=== PATIENT | female | born 1990 | race Caucasian/White ===

== ENCOUNTER 2017-09-17 00:47 | Day surgery (SDC) | payer MEDICARE, OTHER ==
[~2017-09-17 00:47] MED LIST: ACET650SUP PR; ALPR.5 PO; ALUM320SU PO; AMIT10 PO; AMIT25 PO; AMLO5; AMLO5 PO; ASCO500 PO; ASPI325 PO; ATOR10; ATOR10 PO; ATOR20 PO; Ambien10 MG; BACTRIM; BCP'S; CALACE667G PO; CALC ACETATE; CALC ACETATE PO; CALC.25 PO; CALCA500CH PO; CHOL10002; CLON.1 PO; CLON.2; CLON.2 PO; CLOP75 PO; CYCL10 PO; Calcitriol0.5 MCG PO; Calcium Acetat667 MG PO; DAPTOMYCIN; DIPATR PO; DOCU100 PO; DOXE0.5 PO; DOXY100 PO; Dialyvite 5000 T5 MG; Doxycycline Mo100 M1 PO; EPOE20I IV; EPOE20I SQ; EPOE4000I SQ; FAMO20 PO; FERR160 PO; FERR325 PO; FERSU250ER PO; FURO40 PO; GABA100 PO; GABA300 PO; HYDACE5 PO; HYDMOR4 PO; IBUP800 PO; INS70/30PN SC; INSUASPI SC; INSULANI SC; LABE100; LABE100 PO; LEVFLO500 PO; LIDO5TP TOP; LIPITOR; LORA1 PO; LOSA25 PO; Lopressor PO; MAGOXI400 PO; MAXALT-MLT; MEDR150I IM; METO25 PO; METO25ER PO; METO5A PO; MIDO2.5 PO; MIDO5 PO; MULVITB PO; MYCO250; MYCO250 PO; MYCOPHENOLATE; Meribin5 MG; NECON; NEPHROCAP PO; NORTHERA100 MG PO; OMEP10ER PO; OMEP20ER; OMEP20ER PO; OMEPRAZOLE MAGN20 MG PO; OXYACE5T PO; OXYC5 PO; PARI1 PO; PENVK500 PO; POLY17UD PO; PRED; PRED1 PO; PRED20 PO; PRED5; PRED5 PO; PROACE100 PO; PROC10 PO; PROM25; PROM25 PO; RANI150; RENVELA PO; RXHYDMOR2 PO; RXOXYACE PO; RXPROACE PO; RXPROM25 PO; Restoril15 MG PO; SENN187 PO; SENSIPAR PO; SEPTRA; SEVE800 PO; SEVEC800 PO; SIROLIMUS; SODBIC650 PO; SUCR1 PO; SULTRIDS PO; Sensipar PO; TACR1; TACR1 PO; TOPI25; TRAM50 PO; VALGANCICLOVIR; VALGANCICLOVIR PO; VENOFER; Vitamin C100 M1 PO; WARF10 PO; WARF5 PO; WARF7.5 PO; ZOLP10 PO; ZOLP5 PO; Zofran Odt4 MG SL; [UNRECOGNIZED DRUG - CODE] SQ; [UNRECOGNIZED DRUG - OTHER]; [UNRECOGNIZED DRUG - OTHER]; [UNRECOGNIZED DRUG - OTHER]
[2018-04-12] MEDS ORDERED: NATPARA SC (00:12)
[2018-08-30] MEDS ORDERED: TOPI100 PO (12:22)
[2018-09-04] MEDS ORDERED: CUBICIN500 MG IV (11:37)
== END 2017-09-17 16:07 | disposition home or self-care (01) ==
LOC: ATC 00:47 → EDSTATUS 13:30 → ATC 16:07 → LAB FUT 09-13 09:25
DX: D64.9 Anemia, unspecified (principal); N18.6 End stage renal disease; D63.1 Anemia in chronic kidney disease
CPT/HCPCS: 36415; 36430; 86850; 86900; 86901; 86923; J7050; P9016

== ENCOUNTER 2017-09-22 20:04 | Emergency (ER) | payer MEDICARE, OTHER ==
[~2017-09-22] VITALS: Ht 147.3 cm; Wt 60.5 kg
[2017-09-22 21:25] LABS: Calcium, Ionized (POC) 0.86 mmol/L (1.10-1.46); Chloride (POC) 94 mmol/L (98-108); Creatinine (POC) 9.3 mg/dL (0.6-1.0); Glucose (ISTAT POC) 188 mg/dL (70-99); Hemoglobin (POC) 13.6 g/dL (12.0-16.0); Potassium (POC) 3.7 mmol/L (3.5-5.5); Sodium (POC) 129 mmol/L (135-148); Total CO2 (POC) 23 mmol/L (21-32)
[2017-09-22 21:30] LABS: BASOPHILS ABSOLUTE AUTO 0.02 K/mm3 (0.00-0.23); BASOPHILS PERCENT AUTO 0 % (0-2); EOSINOPHILS ABSOLUTE AUTO 0.12 K/mm3 (0.00-0.68); EOSINOPHILS PERCENT AUTO 1 % (0-6); Hemoglobin 11.8 g/dL (11.5-16.0); IMMATURE GRAN ABSOLUTE AUTO 0.05 K/mm3 (0.00-0.10); IMMATURE GRAN PERCENT AUTO 0 % (0-1); LYMPHOCYTES ABSOLUTE AUTO 0.66 K/mm3 (0.84-5.20); LYMPHOCYTES PERCENT AUTO 3 % (21-46); MONOCYTES ABSOLUTE AUTO 0.28 K/mm3 (0.16-1.47); MONOCYTES PERCENT AUTO 1 % (4-13); Mean Corpuscular HGB 31.7 pg (26.0-34.0); Mean Corpuscular HGB Conc 31.9 g/dL (31.5-36.5); Mean Corpuscular Volume 100 fL (80-100); Mean Platelet Volume 10.9 fL (9.1-12.4); NEUTROPHILS ABSOLUTE AUTO 18.51 K/mm3 (1.96-9.15); NEUTROPHILS PERCENT AUTO 94 % (41-73); NRBC ABSOLUTE 0.05 K/mm3 (0.00-0.02); NRBC Auto 0.2 /100 WBC (0.0-0.2); Platelet Count 387 K/mm3 (150-400); RDW Coefficient Variation 18.8 % (11.7-14.2); RDW Standard Deviation 64.3 fL (35.1-46.3); Red Blood Cell Count 3.72 M/mm3 (3.80-5.20); White Blood Cell Count 19.64 K/mm3 (4.00-11.30)
[2017-09-22] MEDS ORDERED: WARF2 PO (21:52)
[2017-09-22 21:54] LABS: Troponin I <0.015 ng/mL (0.000-0.040)
[2017-09-22 22:00] LABS: Alanine Aminotransfer (ALT/SGP 17 U/L (12-78); Albumin, Blood 4.1 g/dL (3.4-5.0); Albumin/Globulin Ratio 0.8 (0.8-1.8); Alk Phos 140 U/L (50-136); Anion Gap 16 mmol/L (6-16); Aspartate Aminotrans (AST/SGOT 14 U/L (12-37); Bilirubin, Total 0.6 mg/dL (0.1-1.0); Blood Urea Nitrogen 62 mg/dL (8-24); Bun/Creatinine Ratio 6.9 (12.0-20.0); CO2, Blood 26 mmol/L (21-32); Calcium, Blood 9.2 mg/dL (8.5-10.1); Chloride, Blood 86 mmol/L (98-108); Creatinine, Blood 8.93 mg/dL (0.40-1.00); Globulin, Blood 4.9 g/dL (2.2-4.0); Glomerular Filtration Rate 6 (60-); Glucose, Blood 188 mg/dL (70-99); Potassium, Blood 3.6 mmol/L (3.5-5.5); Sodium, Blood 128 mmol/L (136-145)
[2017-09-22 22:44] LABS: Base Excess Venous -0.5 mmol/L; Bicarbonate Venous 24.9 mmol/L (24.0-30.0); PCO2 Venous 26.2 mmHg (38-42); PO2 Venous 180 mmHg (38-42)
[2017-09-22 22:45] LABS: pH Blood Venous 7.53 (7.34-7.37)
[2017-09-22 22:55] LABS: International Normalized Ratio 1.09; Prothrombin Time Results 11.4 Sec (9.7-11.5)
[2018-04-12] MEDS ORDERED: NATPARA SC (00:12)
[2018-08-30] MEDS ORDERED: TOPI100 PO (12:22)
[2018-09-04] MEDS ORDERED: CUBICIN500 MG IV (11:37)
== END 2017-09-23 01:05 | disposition home or self-care (01) ==
LOC: ER 20:04
PROVIDERS: Physician Assistant
DX: R07.9 Chest pain, unspecified (principal); Z88.8 Allergy status to other drugs, medicaments and biological substances; Z88.1 Allergy status to other antibiotic agents; Z79.899 Other long term (current) drug therapy; Z79.01 Long term (current) use of anticoagulants; E11.9 Type 2 diabetes mellitus without complications; I10 Essential (primary) hypertension
CPT/HCPCS: 36415; 71045; 80047; 80053; 82803; 83605; 84484; 85014; 85025; 85610; 87040; 93005; 93010; 96365; 96367; 96368; 96375; 99285; J1580; J1885; J2185; J2405

== ENCOUNTER → 2017-09-29 | Outpatient (CLI) | payer MEDICARE, OTHER ==
[~2017-09-29] MED LIST changes: +ACET325 PO; +Acidophilus La100 GM PO; +CUBICIN RF500 MG IV; +CUBICIN500 MG IV; +DIPHEDRYL25 M1 IV; +FENT50TP IV; +NATPARA SC; +ONDA4ODT IV; +TOPI100 PO; +WARF2 PO
[2017-09-29 14:53] LABS: Albumin, Blood 3.6 g/dL (3.4-5.0); Calcium, Blood 8.7 mg/dL (8.5-10.1); Phosphorus, Blood 8.8 mg/dL (2.5-4.9)
== END ==
LOC: LAB DAV 13:45
PROVIDERS: Internal Medicine Nephrology
DX: E83.51 Hypocalcemia (principal)
CPT/HCPCS: 82040; 82310; 84100

== ENCOUNTER 2017-10-26 19:07 | Emergency (ER) | payer MEDICARE, OTHER ==
[~2017-10-26] VITALS: Ht 147.3 cm; Wt 63.5 kg
[~2017-10-26 19:07] MED LIST changes: -ACET325 PO; -Acidophilus La100 GM PO; -CUBICIN RF500 MG IV; -CUBICIN500 MG IV; -DIPHEDRYL25 M1 IV; -FENT50TP IV; -NATPARA SC; -ONDA4ODT IV; -TOPI100 PO
[2017-10-26 20:40] LABS: Calcium, Ionized (POC) 1.02 mmol/L (1.10-1.46); Chloride (POC) 106 mmol/L (98-108); Glucose (ISTAT POC) 86 mg/dL (70-99); Hemoglobin (POC) 11.2 g/dL (12.0-16.0); Potassium (POC) 3.7 mmol/L (3.5-5.5); Sodium (POC) 138 mmol/L (135-148); Total CO2 (POC) 19 mmol/L (21-32)
[2017-10-26 20:43] LABS: BASOPHILS ABSOLUTE AUTO 0.04 K/mm3 (0.00-0.23); BASOPHILS PERCENT AUTO 1 % (0-2); EOSINOPHILS ABSOLUTE AUTO 0.81 K/mm3 (0.00-0.68); EOSINOPHILS PERCENT AUTO 10 % (0-6); Hemoglobin 10.7 g/dL (11.5-16.0); IMMATURE GRAN ABSOLUTE AUTO 0.04 K/mm3 (0.00-0.10); IMMATURE GRAN PERCENT AUTO 1 % (0-1); LYMPHOCYTES ABSOLUTE AUTO 1.63 K/mm3 (0.84-5.20); LYMPHOCYTES PERCENT AUTO 20 % (21-46); MONOCYTES ABSOLUTE AUTO 0.48 K/mm3 (0.16-1.47); MONOCYTES PERCENT AUTO 6 % (4-13); Mean Corpuscular HGB 32.5 pg (26.0-34.0); Mean Corpuscular HGB Conc 30.6 g/dL (31.5-36.5); Mean Corpuscular Volume 106 fL (80-100); Mean Platelet Volume 11.2 fL (9.1-12.4); NEUTROPHILS ABSOLUTE AUTO 5.05 K/mm3 (1.96-9.15); NEUTROPHILS PERCENT AUTO 63 % (41-73); Platelet Count 197 K/mm3 (150-400); RDW Coefficient Variation 18.5 % (11.7-14.2); RDW Standard Deviation 71.7 fL (35.1-46.3); Red Blood Cell Count 3.29 M/mm3 (3.80-5.20); White Blood Cell Count 8.05 K/mm3 (4.00-11.30)
[2017-10-26 21:01] LABS: Troponin I <0.015 ng/mL (0.000-0.040)
[2017-10-26 21:09] LABS: CPK Creatine Kinase 46 U/L (26-193); Creatine Kinase MB 0.5 ng/mL (0.0-3.6); Creatine Kinase MB Index 1.1 (0.0-4.0)
[2017-10-26 21:12] LABS: Alanine Aminotransfer (ALT/SGP 74 U/L (12-78); Albumin, Blood 3.1 g/dL (3.4-5.0); Albumin/Globulin Ratio 0.9 (0.8-1.8); Alk Phos 150 U/L (50-136); Anion Gap 19 mmol/L (6-16); Aspartate Aminotrans (AST/SGOT 39 U/L (12-37); Bilirubin, Total 0.4 mg/dL (0.1-1.0); Blood Urea Nitrogen 111 mg/dL (8-24); Bun/Creatinine Ratio 9.5 (12.0-20.0); CO2, Blood 17 mmol/L (21-32); Chloride, Blood 103 mmol/L (98-108); Globulin, Blood 3.6 g/dL (2.2-4.0); Glomerular Filtration Rate 4 (60-); Glucose, Blood 99 mg/dL (70-99); Potassium, Blood 3.7 mmol/L (3.5-5.5); Sodium, Blood 139 mmol/L (136-145); Total Protein, Blood 6.7 g/dL (6.4-8.2)
[2017-10-26 22:50] LABS: International Normalized Ratio 0.97; Prothrombin Time Results 10.1 Sec (9.7-11.5)
[2018-04-12] MEDS ORDERED: NATPARA SC (00:12)
[2018-08-30] MEDS ORDERED: TOPI100 PO (12:22)
[2018-09-04] MEDS ORDERED: CUBICIN500 MG IV (11:37)
== END 2017-10-27 00:18 | disposition home or self-care (01) ==
LOC: ER 19:07
PROVIDERS: Emergency Medicine
DX: R07.9 Chest pain, unspecified (principal); Z88.8 Allergy status to other drugs, medicaments and biological substances; Z88.1 Allergy status to other antibiotic agents; Z79.899 Other long term (current) drug therapy; Z79.01 Long term (current) use of anticoagulants
CPT/HCPCS: 36415; 71046; 80047; 80053; 82550; 82553; 84484; 85014; 85025; 85610; 93005; 93010; 96374; 99284; J1885

== ENCOUNTER 2018-05-08 22:24 | Inpatient (IN) | payer MEDICARE, OTHER ==
[~2018-05-08] VITALS: Ht 147.3 cm; Wt 64.6 kg
[~2018-05-08 22:24] MED LIST changes: +NATPARA SC
[2018-05-08 23:53] LABS: Hematocrit 27.1 % (33.0-51.0); Hemoglobin 8.8 g/dL (11.5-16.0); Mean Corpuscular HGB 32.5 pg (26.0-34.0); Mean Corpuscular HGB Conc 32.5 g/dL (31.5-36.5); Mean Corpuscular Volume 100 fL (80-100); Mean Platelet Volume 12.1 fL (9.1-12.4); Platelet Count 142 K/mm3 (150-400); RDW Coefficient Variation 17.2 % (11.7-14.2); RDW Standard Deviation 61.9 fL (35.1-46.3); Red Blood Cell Count 2.71 M/mm3 (3.80-5.20); White Blood Cell Count 5.43 K/mm3 (4.00-11.30)
[2018-05-09 00:11] LABS: BAND PERCENT MAN 18 % (0-8); BASOPHILS PERCENT MAN 0 % (0-2); EOSINOPHILS ABSOLUTE MAN 0.05 K/mm3 (0.00-0.68); EOSINOPHILS PERCENT MAN 1 % (0-6); LYMPHOCYTES ABSOLUTE MAN 0.16 K/mm3 (0.84-5.20); LYMPHOCYTES PERCENT MAN 3 % (21-46); MONOCYTES ABSOLUTE MAN 0.05 K/mm3 (0.16-1.47); MONOCYTES PERCENT MAN 1 % (4-13); MYELOCYTE ABSOLUTE MAN 0.05 K/mm3 (0.00-0.00); MYELOCYTE PERCENT MAN 1 % (0-0); SEG NEUTROPHILS PERCENT MAN 76 % (41-73); TOTAL CELLS COUNTED 100
[2018-05-09 00:20] LABS: Albumin, Blood 3.6 g/dL (3.4-5.0); Albumin/Globulin Ratio 0.8 (0.8-1.8); Bilirubin, Total 0.8 mg/dL (0.1-1.0); Bun/Creatinine Ratio 4.8 (12.0-20.0); Calcium, Blood 6.3 mg/dL (8.5-10.1); Creatinine, Blood 9.97 mg/dL (0.40-1.00); Globulin, Blood 4.3 g/dL (2.2-4.0); Potassium, Blood 4.4 mmol/L (3.5-5.5); Total Protein, Blood 7.9 g/dL (6.4-8.2)
[2018-05-09 05:25] LABS: BASOPHILS ABSOLUTE AUTO 0.02 K/mm3 (0.00-0.23); BASOPHILS PERCENT AUTO 0 % (0-2); EOSINOPHILS ABSOLUTE AUTO 0.01 K/mm3 (0.00-0.68); EOSINOPHILS PERCENT AUTO 0 % (0-6); Hematocrit 23.8 % (33.0-51.0); Hemoglobin 7.6 g/dL (11.5-16.0); IMMATURE GRAN ABSOLUTE AUTO 0.02 K/mm3 (0.00-0.10); IMMATURE GRAN PERCENT AUTO 0 % (0-1); LYMPHOCYTES ABSOLUTE AUTO 0.64 K/mm3 (0.84-5.20); LYMPHOCYTES PERCENT AUTO 10 % (21-46); MONOCYTES ABSOLUTE AUTO 0.33 K/mm3 (0.16-1.47); MONOCYTES PERCENT AUTO 5 % (4-13); Mean Corpuscular HGB 32.8 pg (26.0-34.0); Mean Corpuscular HGB Conc 31.9 g/dL (31.5-36.5); Mean Platelet Volume 11.7 fL (9.1-12.4); NEUTROPHILS ABSOLUTE AUTO 5.47 K/mm3 (1.96-9.15); NEUTROPHILS PERCENT AUTO 84 % (41-73); Platelet Count 143 K/mm3 (150-400); RDW Coefficient Variation 17.5 % (11.7-14.2); RDW Standard Deviation 65.5 fL (35.1-46.3); Red Blood Cell Count 2.32 M/mm3 (3.80-5.20); White Blood Cell Count 6.49 K/mm3 (4.00-11.30)
[2018-05-09 05:26] LABS: Mean Corpuscular Volume 103 fL (80-100)
[2018-05-09 05:38] LABS: International Normalized Ratio 1.1; Prothrombin Time Results 11.3 Sec (9.7-11.5)
[2018-05-09 05:49] LABS: Magnesium, Blood 2.1 mg/dL (1.6-2.4); Phosphorus, Blood 4.1 mg/dL (2.5-4.9)
[2018-05-09 05:52] LABS: Potassium, Blood 4.1 mmol/L (3.5-5.5)
[2018-05-09 06:07] LABS: Bun/Creatinine Ratio 4.6 (12.0-20.0); Calcium, Blood 5.7 mg/dL (8.5-10.1); Creatinine, Blood 10.3 mg/dL (0.40-1.00)
[2018-05-09 12:52] LABS: Gentamicin, Random 2.5 ug/Ml
[2018-05-09 15:56] LABS: Gentamicin, Peak 10.9 ug/mL (4.0-8.0)
[2018-05-10 03:56] LABS: BASOPHILS ABSOLUTE AUTO 0.03 K/mm3 (0.00-0.23); BASOPHILS PERCENT AUTO 0 % (0-2); EOSINOPHILS PERCENT AUTO 0 % (0-6); Hematocrit 30.3 % (33.0-51.0); Hemoglobin 9.6 g/dL (11.5-16.0); IMMATURE GRAN ABSOLUTE AUTO 0.03 K/mm3 (0.00-0.10); IMMATURE GRAN PERCENT AUTO 0 % (0-1); LYMPHOCYTES ABSOLUTE AUTO 0.73 K/mm3 (0.84-5.20); LYMPHOCYTES PERCENT AUTO 9 % (21-46); MONOCYTES ABSOLUTE AUTO 0.53 K/mm3 (0.16-1.47); MONOCYTES PERCENT AUTO 6 % (4-13); Mean Corpuscular HGB 30.6 pg (26.0-34.0); Mean Corpuscular HGB Conc 31.7 g/dL (31.5-36.5); Mean Platelet Volume 11.9 fL (9.1-12.4); NEUTROPHILS ABSOLUTE AUTO 7.05 K/mm3 (1.96-9.15); NEUTROPHILS PERCENT AUTO 84 % (41-73); Platelet Count 161 K/mm3 (150-400); RDW Coefficient Variation 19.5 % (11.7-14.2); RDW Standard Deviation 67.8 fL (35.1-46.3); Red Blood Cell Count 3.14 M/mm3 (3.80-5.20); White Blood Cell Count 8.37 K/mm3 (4.00-11.30)
[2018-05-10 04:03] LABS: Mean Corpuscular Volume 97 fL (80-100)
[2018-05-10 04:06] LABS: International Normalized Ratio 1.18
[2018-05-10 04:13] LABS: Albumin, Blood 2.8 g/dL (3.4-5.0); Anion Gap 9 mmol/L (6-16); Blood Urea Nitrogen 35 mg/dL (8-24); Bun/Creatinine Ratio 4.7 (12.0-20.0); CO2, Blood 26 mmol/L (21-32); Calcium, Blood 6.7 mg/dL (8.5-10.1); Chloride, Blood 101 mmol/L (98-108); Creatinine, Blood 7.43 mg/dL (0.40-1.00); Glomerular Filtration Rate 7 (60-); Glucose, Blood 141 mg/dL (70-99); Magnesium, Blood 1.9 mg/dL (1.6-2.4); Phosphorus, Blood 3.7 mg/dL (2.5-4.9); Potassium, Blood 4.3 mmol/L (3.5-5.5); Sodium, Blood 136 mmol/L (136-145)
[2018-05-10 12:24] LABS: Gentamicin, Random 2.1 ug/Ml
[2018-05-11 04:21] LABS: Hematocrit 33.9 % (33.0-51.0); Hemoglobin 10.8 g/dL (11.5-16.0)
[2018-05-11 04:33] LABS: International Normalized Ratio 1.24; Prothrombin Time Results 12.6 Sec (9.7-11.5)
[2018-05-11 04:38] LABS: Albumin, Blood 2.9 g/dL (3.4-5.0); Anion Gap 10 mmol/L (6-16); Blood Urea Nitrogen 32 mg/dL (8-24); Bun/Creatinine Ratio 4.6 (12.0-20.0); CO2, Blood 31 mmol/L (21-32); Calcium, Blood 6.9 mg/dL (8.5-10.1); Chloride, Blood 96 mmol/L (98-108); Creatinine, Blood 6.95 mg/dL (0.40-1.00); Glomerular Filtration Rate 8 (60-); Glucose, Blood 99 mg/dL (70-99); Magnesium, Blood 2.3 mg/dL (1.6-2.4); Phosphorus, Blood 4.6 mg/dL (2.5-4.9); Potassium, Blood 3.9 mmol/L (3.5-5.5); Sodium, Blood 137 mmol/L (136-145)
[2018-05-12 05:14] LABS: Hemoglobin 10.6 g/dL (11.5-16.0)
[2018-05-12 05:23] LABS: International Normalized Ratio 1.3; Prothrombin Time Results 13.2 Sec (9.7-11.5)
[2018-05-12 05:40] LABS: Albumin, Blood 2.8 g/dL (3.4-5.0); Anion Gap 12 mmol/L (6-16); Blood Urea Nitrogen 41 mg/dL (8-24); CO2, Blood 29 mmol/L (21-32); Calcium, Blood 6.6 mg/dL (8.5-10.1); Chloride, Blood 96 mmol/L (98-108); Glucose, Blood 97 mg/dL (70-99); Magnesium, Blood 2.5 mg/dL (1.6-2.4); Phosphorus, Blood 3.7 mg/dL (2.5-4.9); Potassium, Blood 3.6 mmol/L (3.5-5.5); Sodium, Blood 137 mmol/L (136-145)
[2018-05-12 05:42] LABS: Bun/Creatinine Ratio 4.5 (12.0-20.0); Creatinine, Blood 9.09 mg/dL (0.40-1.00); Glomerular Filtration Rate 6 (60-)
[2018-05-13 05:21] LABS: BASOPHILS ABSOLUTE AUTO 0.02 K/mm3 (0.00-0.23); BASOPHILS PERCENT AUTO 0 % (0-2); EOSINOPHILS ABSOLUTE AUTO 0.28 K/mm3 (0.00-0.68); EOSINOPHILS PERCENT AUTO 6 % (0-6); Hematocrit 31.3 % (33.0-51.0); Hemoglobin 9.8 g/dL (11.5-16.0); IMMATURE GRAN ABSOLUTE AUTO 0.01 K/mm3 (0.00-0.10); IMMATURE GRAN PERCENT AUTO 0 % (0-1); LYMPHOCYTES ABSOLUTE AUTO 1.34 K/mm3 (0.84-5.20); LYMPHOCYTES PERCENT AUTO 30 % (21-46); MONOCYTES ABSOLUTE AUTO 0.56 K/mm3 (0.16-1.47); MONOCYTES PERCENT AUTO 12 % (4-13); Mean Corpuscular HGB 31.6 pg (26.0-34.0); Mean Corpuscular HGB Conc 31.3 g/dL (31.5-36.5); Mean Platelet Volume 10.8 fL (9.1-12.4); NEUTROPHILS ABSOLUTE AUTO 2.31 K/mm3 (1.96-9.15); NEUTROPHILS PERCENT AUTO 51 % (41-73); Platelet Count 223 K/mm3 (150-400); RDW Coefficient Variation 17.9 % (11.7-14.2); RDW Standard Deviation 65.7 fL (35.1-46.3); White Blood Cell Count 4.52 K/mm3 (4.00-11.30)
[2018-05-13 05:33] LABS: Mean Corpuscular Volume 101 fL (80-100)
[2018-05-13 05:53] LABS: Magnesium, Blood 2.5 mg/dL (1.6-2.4)
[2018-05-13 06:07] LABS: International Normalized Ratio 1.21; Prothrombin Time Results 12.3 Sec (9.7-11.5)
[2018-05-13 06:11] LABS: Albumin, Blood 2.6 g/dL (3.4-5.0); Anion Gap 11 mmol/L (6-16); Blood Urea Nitrogen 50 mg/dL (8-24); Bun/Creatinine Ratio 4.6 (12.0-20.0); CO2, Blood 28 mmol/L (21-32); Calcium, Blood 6.3 mg/dL (8.5-10.1); Chloride, Blood 97 mmol/L (98-108); Glomerular Filtration Rate 5 (60-); Glucose, Blood 111 mg/dL (70-99); Phosphorus, Blood 3.5 mg/dL (2.5-4.9); Sodium, Blood 136 mmol/L (136-145)
[2018-05-14 05:51] LABS: Hematocrit 29.8 % (33.0-51.0); Hemoglobin 9.3 g/dL (11.5-16.0)
[2018-05-14 06:02] LABS: International Normalized Ratio 1.07
[2018-05-14 06:13] LABS: Magnesium, Blood 2.6 mg/dL (1.6-2.4)
[2018-05-14 06:17] LABS: Albumin, Blood 2.7 g/dL (3.4-5.0); Anion Gap 12 mmol/L (6-16); Blood Urea Nitrogen 57 mg/dL (8-24); Bun/Creatinine Ratio 4.6 (12.0-20.0); CO2, Blood 27 mmol/L (21-32); Calcium, Blood 6.5 mg/dL (8.5-10.1); Chloride, Blood 100 mmol/L (98-108); Glomerular Filtration Rate 4 (60-); Glucose, Blood 98 mg/dL (70-99); Phosphorus, Blood 3.5 mg/dL (2.5-4.9); Sodium, Blood 139 mmol/L (136-145)
[2018-05-14] MEDS ORDERED: ACET325 PO (14:48)
[2018-05-14] MEDS ORDERED: CUBICIN RF500 MG IV (14:51)
[2018-05-14] MEDS ORDERED: DOCU100 PO (14:52)
[2018-05-14] MEDS ORDERED: NORTHERA100 MG PO (14:56)
[2018-05-14] MEDS ORDERED: DIPHEDRYL25 M1 IV (14:56)
[2018-05-14] MEDS ORDERED: FENT50TP IV (14:57)
[2018-05-14] MEDS ORDERED: NATPARA SC (14:58)
[2018-05-14] MEDS ORDERED: Acidophilus La100 GM PO (14:58)
[2018-05-14] MEDS ORDERED: ONDA4ODT IV (14:59)
== END 2018-05-14 16:08 | disposition short-term general hospital (02) | DRG 314 ==
LOC: ER 22:24 → MEDS 05-09 02:15 → ICUW 05-09 02:15 → MEDS 05-09 02:15 → ICUW 05-09 02:20 → MEDS 05-11 16:52 → ENPENDDIS 05-14 09:31 → MEDS 05-14 16:08
PROVIDERS: Emergency Medicine; Internal Medicine; Internal Medicine Nephrology
PROC: 30243N1 Transfusion of Nonautologous Red Blood Cells into Central Vein, Percutaneous Approach (ICD-10-PCS; principal; 2017-05-09)
PROC: 5A1D70Z Performance of Urinary Filtration, Intermittent, Less than 6 Hours Per Day (ICD-10-PCS; 2017-05-09)
DX: T82.7XXA Infection and inflammatory reaction due to other cardiac and vascular devices, implants and grafts, initial encounter (principal); N18.6 End stage renal disease; A41.02 Sepsis due to Methicillin resistant Staphylococcus aureus; Z94.0 Kidney transplant status; I87.1 Compression of vein; I12.0 Hypertensive chronic kidney disease with stage 5 chronic kidney disease or end stage renal disease; Z86.14 Personal history of Methicillin resistant Staphylococcus aureus infection; Z95.2 Presence of prosthetic heart valve; I95.9 Hypotension, unspecified; D63.1 Anemia in chronic kidney disease; E83.51 Hypocalcemia; E88.09 Other disorders of plasma-protein metabolism, not elsewhere classified; E87.70 Fluid overload, unspecified; Z86.711 Personal history of pulmonary embolism; Y95 Nosocomial condition; E83.41 Hypermagnesemia; M25.551 Pain in right hip; E11.22 Type 2 diabetes mellitus with diabetic chronic kidney disease
CPT/HCPCS: 36415; 71045; 73721; 77001; 80048; 80053; 80069; 80170; 83605; 83735; 83970; 84100; 84703; 85014; 85018; 85025; 85610; 86850; 86900; 86901; 86923; 87040; 87070; 87077; 87081; 87147; 87186; 93005; 93010; 93306; 93312; 93325; 96365; 96367; 96375; 99285-25; J0610; J0878; J0881; J1100; J1200; J1580; J1644; J1650; J2020; J2250; J2370; J2405; J3010; J7030; J7120; P9016

== ENCOUNTER 2018-05-19 | Day surgery (SDC) | payer MEDICARE, OTHER ==
[~2018-05-19] MED LIST changes: +ACET325 PO; +Acidophilus La100 GM PO; +CUBICIN RF500 MG IV; +DIPHEDRYL25 M1 IV; +FENT50TP IV; +ONDA4ODT IV
== END 2018-05-19 22:59 | disposition home or self-care (01) ==
LOC: ATC
DX: R78.81 Bacteremia (principal); B95.62 Methicillin resistant Staphylococcus aureus infection as the cause of diseases classified elsewhere; D59.3 Hemolytic-uremic syndrome; I05.9 Rheumatic mitral valve disease, unspecified; E11.22 Type 2 diabetes mellitus with diabetic chronic kidney disease; I12.0 Hypertensive chronic kidney disease with stage 5 chronic kidney disease or end stage renal disease; N18.6 End stage renal disease; M70.61 Trochanteric bursitis, right hip; E11.21 Type 2 diabetes mellitus with diabetic nephropathy; K21.9 Gastro-esophageal reflux disease without esophagitis; D63.1 Anemia in chronic kidney disease; F32.9 Major depressive disorder, single episode, unspecified; Z79.01 Long term (current) use of anticoagulants; Z99.2 Dependence on renal dialysis; Z95.2 Presence of prosthetic heart valve; Z94.0 Kidney transplant status; Z86.711 Personal history of pulmonary embolism; Z79.899 Other long term (current) drug therapy
CPT/HCPCS: J0878

== ENCOUNTER 2018-05-20 00:13 | Day surgery (SDC) | payer MEDICARE, OTHER | END 2018-05-20 22:45 | disposition home or self-care (01) | LOC: ATC 00:13 | DX: A49.02 Methicillin resistant Staphylococcus aureus infection, unspecified site (principal) | CPT/HCPCS: J0878 ==

== ENCOUNTER 2018-05-22 09:18 | Day surgery (SDC) | payer MEDICARE, OTHER | END 2018-05-22 11:35 | disposition home or self-care (01) | LOC: ATC 09:18 | DX: A49.02 Methicillin resistant Staphylococcus aureus infection, unspecified site (principal) | CPT/HCPCS: 96365; J0878 ==

== ENCOUNTER 2018-05-23 13:56 | Emergency (ER) | payer MEDICARE, OTHER ==
[~2018-05-23] VITALS: Ht 147.3 cm; Wt 68.0 kg
== END 2018-05-23 15:01 | disposition home or self-care (01) ==
LOC: ER 13:56
DX: R22.0 Localized swelling, mass and lump, head (principal); T50.8X5A Adverse effect of diagnostic agents, initial encounter; D64.9 Anemia, unspecified; E11.9 Type 2 diabetes mellitus without complications; I10 Essential (primary) hypertension; Z88.8 Allergy status to other drugs, medicaments and biological substances; Z88.1 Allergy status to other antibiotic agents; Z91.048 Other nonmedicinal substance allergy status; Z79.899 Other long term (current) drug therapy
CPT/HCPCS: 96374; 99283-25; J1100

== ENCOUNTER → 2018-05-27 | Outpatient (CLI) | payer MEDICARE, OTHER ==
[2018-05-27 11:46] LABS: Albumin, Blood 3.5 g/dL (3.4-5.0); Albumin/Globulin Ratio 0.8 (0.8-1.8); Bilirubin, Total 0.4 mg/dL (0.1-1.0); Bun/Creatinine Ratio 5.5 (12.0-20.0); Calcium, Blood 7.6 mg/dL (8.5-10.1); Creatinine, Blood 6.18 mg/dL (0.40-1.00); Globulin, Blood 4.6 g/dL (2.2-4.0); Potassium, Blood 3.4 mmol/L (3.5-5.5); Total Protein, Blood 8.1 g/dL (6.4-8.2)
[2018-05-27 11:52] LABS: Hematocrit 33.6 % (33.0-51.0); Hemoglobin 10.3 g/dL (11.5-16.0); Mean Corpuscular HGB 30.5 pg (26.0-34.0); Mean Corpuscular HGB Conc 30.7 g/dL (31.5-36.5); Mean Corpuscular Volume 99 fL (80-100); Mean Platelet Volume 10.2 fL (9.1-12.4); Platelet Count 277 K/mm3 (150-400); RDW Coefficient Variation 17.5 % (11.7-14.2); Red Blood Cell Count 3.38 M/mm3 (3.80-5.20); White Blood Cell Count 8.06 K/mm3 (4.00-11.30)
== END | disposition home or self-care (01) ==
LOC: LAB 10:35 → LAB SHORT 10:35
PROVIDERS: Internal Medicine Infectious Disease
DX: A49.02 Methicillin resistant Staphylococcus aureus infection, unspecified site (principal)
CPT/HCPCS: 80053; 82550; 85027

== ENCOUNTER 2018-06-01 00:01 | Day surgery (SDC) | payer MEDICARE, OTHER | END 2018-06-01 09:00 | disposition home or self-care (01) | LOC: ATC 00:01 | DX: A49.02 Methicillin resistant Staphylococcus aureus infection, unspecified site (principal); Z99.2 Dependence on renal dialysis; I12.0 Hypertensive chronic kidney disease with stage 5 chronic kidney disease or end stage renal disease; N18.6 End stage renal disease; D63.1 Anemia in chronic kidney disease; F32.9 Major depressive disorder, single episode, unspecified; K21.9 Gastro-esophageal reflux disease without esophagitis; Z79.01 Long term (current) use of anticoagulants | CPT/HCPCS: 96365; J0878 ==

== ENCOUNTER 2018-06-04 08:01 | Day surgery (SDC) | payer MEDICARE, OTHER | END 2018-06-04 09:38 | disposition home or self-care (01) | LOC: ATC 08:01 | DX: L89.154 Pressure ulcer of sacral region, stage 4 (principal); S21.30 Unspecified open wound of front wall of thorax with penetration into thoracic cavity; E11.9 Type 2 diabetes mellitus without complications; I50.22 Chronic systolic (congestive) heart failure | CPT/HCPCS: 96365; J0878; J1642 ==

== ENCOUNTER 2018-06-07 00:18 | Day surgery (SDC) | payer MEDICARE, OTHER | END 2018-06-07 15:09 | disposition home or self-care (01) | LOC: ATC 00:18 | DX: L89.154 Pressure ulcer of sacral region, stage 4 (principal); S21.30 Unspecified open wound of front wall of thorax with penetration into thoracic cavity; E11.9 Type 2 diabetes mellitus without complications; I50.22 Chronic systolic (congestive) heart failure | CPT/HCPCS: 96365; J0878; J1642 ==

== ENCOUNTER 2018-09-08 00:15 | Day surgery (SDC) | payer MEDICARE, OTHER ==
[~2018-09-08 00:15] MED LIST changes: +CUBICIN500 MG IV; +TOPI100 PO
== END 2018-09-08 22:38 | disposition home or self-care (01) ==
LOC: ATC 00:15
DX: R50.9 Fever, unspecified (principal); Z86.14 Personal history of Methicillin resistant Staphylococcus aureus infection
CPT/HCPCS: 96365; J0878

== ENCOUNTER 2018-09-10 00:02 | Day surgery (SDC) | payer MEDICARE, OTHER | END 2018-09-10 22:35 | disposition home or self-care (01) | LOC: ATC 00:02 | DX: A49.02 Methicillin resistant Staphylococcus aureus infection, unspecified site (principal); I12.0 Hypertensive chronic kidney disease with stage 5 chronic kidney disease or end stage renal disease; E11.22 Type 2 diabetes mellitus with diabetic chronic kidney disease; N18.6 End stage renal disease; Z99.2 Dependence on renal dialysis; D63.1 Anemia in chronic kidney disease; F32.9 Major depressive disorder, single episode, unspecified; Z79.52 Long term (current) use of systemic steroids | CPT/HCPCS: 96365; J0878 ==

== ENCOUNTER 2018-09-12 11:01 | Day surgery (SDC) | payer MEDICARE, OTHER | END 2018-09-12 11:56 | disposition home or self-care (01) | LOC: ATC 11:01 | DX: R50.9 Fever, unspecified (principal); N18.9 Chronic kidney disease, unspecified; Z86.14 Personal history of Methicillin resistant Staphylococcus aureus infection | CPT/HCPCS: 96374; J0878 ==

== ENCOUNTER 2018-09-15 00:21 | Day surgery (SDC) | payer MEDICARE, OTHER | END 2018-09-15 15:30 | disposition home or self-care (01) | LOC: ATC 00:21 | DX: R50.9 Fever, unspecified (principal); N18.6 End stage renal disease; Z99.2 Dependence on renal dialysis; Z86.14 Personal history of Methicillin resistant Staphylococcus aureus infection | CPT/HCPCS: 96365; J0878 ==

== ENCOUNTER 2018-09-18 00:04 | Day surgery (SDC) | payer MEDICARE, OTHER ==
--- NOTE | 2018-09-18 13:31 | NUR ---
Rec'd call from MAICOL Julian nurse, who reports pt's appointment card states that she is coming in on Thursday09/09/18 at 1100 instead of today for her IV antibiotics. Pharmacy notified.
== END 2018-09-18 22:39 | disposition home or self-care (01) ==
LOC: ATC 00:04
DX: I12.0 Hypertensive chronic kidney disease with stage 5 chronic kidney disease or end stage renal disease (principal); N18.6 End stage renal disease; R50.9 Fever, unspecified; Z99.2 Dependence on renal dialysis; Z86.14 Personal history of Methicillin resistant Staphylococcus aureus infection
CPT/HCPCS: 96365; J0878

== ENCOUNTER 2018-09-19 11:00 | Day surgery (SDC) | payer MEDICARE, OTHER ==
--- NOTE | 2018-09-19 13:23 | NUR ---
HD CATH ACCESSED UNDER DIRECTION/TEACHING OF DIAYLSIS JORGE MARTIN. PER PROTOCOL AND UNDER STERILE TECHNIQUE PORT ACCESSED. WASTE 5ML BLOOD, FLUSHED WITH 10ML STERILE NS AND IV DAPTOMYCIN INFUSING. AFTER BLAS FINISHED. FLUSHED WITH 10ML STERILE NS AND 1.7ML SOD.CITRATE SOLN IN STILLED. BLUE DIAYLSIS CAP PLACED AND LINE CLAMPED. PT BRIAN PROCEDURE WELL. CAP PATENT/INTACT.
== END 2018-09-19 12:00 | disposition home or self-care (01) ==
LOC: ATC 11:00
DX: R50.9 Fever, unspecified (principal); N18.6 End stage renal disease; Z99.2 Dependence on renal dialysis; Z86.14 Personal history of Methicillin resistant Staphylococcus aureus infection
CPT/HCPCS: 96365; J0878

== ENCOUNTER 2018-09-21 10:56 | Day surgery (SDC) | payer MEDICARE, OTHER ==
--- NOTE | 2018-05-24 10:06 | NUR ---
PT CANCELED THIS AM PER TYRONE ADMIN.
== END 2018-09-21 12:06 | disposition home or self-care (01) ==
LOC: ATC 10:56
DX: I12.0 Hypertensive chronic kidney disease with stage 5 chronic kidney disease or end stage renal disease (principal); N18.6 End stage renal disease; R50.9 Fever, unspecified; Z86.14 Personal history of Methicillin resistant Staphylococcus aureus infection; Z99.2 Dependence on renal dialysis
CPT/HCPCS: 96365; J0878

== ENCOUNTER 2018-09-22 16:51 | Inpatient (IN) | payer MEDICARE, OTHER ==
[~2018-09-22] VITALS: Ht 147.3 cm; Wt 60.6 kg
[2018-09-22 17:32] LABS: BASOPHILS ABSOLUTE AUTO 0.02 K/mm3 (0.00-0.23); BASOPHILS PERCENT AUTO 0 % (0-2); EOSINOPHILS PERCENT AUTO 0 % (0-6); Hematocrit 31.8 % (33.0-51.0); Hemoglobin 9.8 g/dL (11.5-16.0); IMMATURE GRAN ABSOLUTE AUTO 0.07 K/mm3 (0.00-0.10); IMMATURE GRAN PERCENT AUTO 1 % (0-1); LYMPHOCYTES PERCENT AUTO 5 % (21-46); MONOCYTES PERCENT AUTO 1 % (4-13); Mean Corpuscular HGB 31.6 pg (26.0-34.0); Mean Corpuscular HGB Conc 30.8 g/dL (31.5-36.5); Mean Corpuscular Volume 103 fL (80-100); NEUTROPHILS PERCENT AUTO 93 % (41-73); Platelet Count 345 K/mm3 (150-400); RDW Coefficient Variation 16.1 % (11.7-14.2); RDW Standard Deviation 60.7 fL (35.1-46.3); White Blood Cell Count 11.99 K/mm3 (4.00-11.30)
[2018-09-22 17:48] LABS: Alanine Aminotransfer (ALT/SGP 29 U/L (12-78); Albumin/Globulin Ratio 0.8 (0.8-1.8); Alk Phos 227 U/L (50-136); Anion Gap 16 mmol/L (6-16); Aspartate Aminotrans (AST/SGOT 16 U/L (12-37); Bilirubin, Total 0.4 mg/dL (0.1-1.0); Blood Urea Nitrogen 19 mg/dL (8-24); Bun/Creatinine Ratio 4.3 (12.0-20.0); CO2, Blood 25 mmol/L (21-32); Calcium, Blood 9.7 mg/dL (8.5-10.1); Chloride, Blood 92 mmol/L (98-108); Creatinine, Blood 4.46 mg/dL (0.40-1.00); Globulin, Blood 5.3 g/dL (2.2-4.0); Glomerular Filtration Rate 13 (60-); Glucose, Blood 331 mg/dL (70-99); Potassium, Blood 3.4 mmol/L (3.5-5.5); Sodium, Blood 133 mmol/L (136-145); Total Protein, Blood 9.3 g/dL (6.4-8.2); Troponin I <0.015 ng/mL (0.000-0.040)
[2018-09-22 19:14] LABS: International Normalized Ratio 1.02; Prothrombin Time Results 10.5 Sec (9.7-11.5)
[2018-09-23 02:03] LABS: Hemoglobin 9.4 g/dL (11.5-16.0); Mean Corpuscular HGB 32.9 pg (26.0-34.0); Mean Corpuscular HGB Conc 31.3 g/dL (31.5-36.5); Mean Corpuscular Volume 105 fL (80-100); Mean Platelet Volume 10.2 fL (9.1-12.4); Platelet Count 336 K/mm3 (150-400); RDW Coefficient Variation 16.1 % (11.7-14.2); RDW Standard Deviation 61.2 fL (35.1-46.3); Red Blood Cell Count 2.86 M/mm3 (3.80-5.20); White Blood Cell Count 7.84 K/mm3 (4.00-11.30)
[2018-09-23 02:06] LABS: International Normalized Ratio 1.02; Prothrombin Time Results 10.5 Sec (9.7-11.5)
[2018-09-23 02:07] LABS: Albumin, Blood 3.6 g/dL (3.4-5.0); Anion Gap 14 mmol/L (6-16); Blood Urea Nitrogen 29 mg/dL (8-24); Bun/Creatinine Ratio 5.3 (12.0-20.0); CO2, Blood 27 mmol/L (21-32); Calcium, Blood 9.4 mg/dL (8.5-10.1); Chloride, Blood 92 mmol/L (98-108); Creatinine, Blood 5.44 mg/dL (0.40-1.00); Glomerular Filtration Rate 10 (60-); Glucose, Blood 199 mg/dL (70-99); Magnesium, Blood 2.2 mg/dL (1.6-2.4); Phosphorus, Blood 4.9 mg/dL (2.5-4.9); Potassium, Blood 4.3 mmol/L (3.5-5.5); Sodium, Blood 133 mmol/L (136-145)
--- NOTE | 2018-09-23 04:51 | NUR ---
SHIFT SUMMARY PT A&OX4. DENIES PAIN, N/V, AND SOB. HEPARIN DRIP RUNNING 20UNIT/KG/H. AMBULATES INDEPENDENTLY. FACIAL SWELLING NOTED. PT ON ISOLATION FOR MRSA. BANDAGE ON DIALYSIS CATH DRY AND INTACT. CALLS APPROPRIATELY. WILL CONTINUE TO MONITOR.
--- NOTE | 2018-09-23 18:07 | NUR ---
SHIFT SUMMARY PT SLEEPING TIL DIALYSIS TODAY AT 0940. WHEELED TO DIALYSIS ROOM BY W/C. NO RESIDUAL EFFECTS FROM DIALYSIS THIS AFTERNOON. INDEPENDENT IN HALLWAY TO VISIT A FRIEND AND WALK AROUND IN HOSPITAL. HAD DENIED PAIN OR NAUSEA. DR ISRAEL IN TO SEE PT. PT REPORTS SHE FEELS HER FACE IS MUCH LESS SWOLLEN THAN WHEN SHE FIRST CAME IN.
--- NOTE | 2018-09-23 20:10 | NUR ---
HEPARIN RATE CHANGE FROM 21 TO 22 PER PHARMACY. VERIFIED WITH DEANN Carrasco RN.
--- NOTE | 2018-09-24 04:33 | NUR ---
SHIFT SUMMARY PATIENT HAD NO ACUTE CHANGES OBSERVED DURING THE SHIFT. AXO X4 AND INDEPENDENT IN THE HALLS. DENIES PAIN, SOB, AND N/V. PIV REMAINS INTACT. HEPARIN INFUSING AT 22mL/HR. PATIENT REQUEST XANAX FOR INSOMNIA AND GIVEN PER EMAR. CONTACT PRECAUTIONS. COOPERATIVE WITH CARE. CALL LIGHT IN REACH. BED IN LOWEST POSITION. WILL CONTINUE TO MONITOR UNTIL DAY SHIFT NURSE ASSUMES CARE.
--- NOTE | 2018-09-24 09:19 | NUR ---
PATIENT TRANSPORTED DOWN TO DIALYSIS
[2018-09-24 09:45] LABS: Hematocrit 33.1 % (33.0-51.0); Hemoglobin 10.1 g/dL (11.5-16.0)
[2018-09-24 09:59] LABS: Albumin, Blood 3.6 g/dL (3.4-5.0); Anion Gap 13 mmol/L (6-16); Blood Urea Nitrogen 39 mg/dL (8-24); Bun/Creatinine Ratio 6.7 (12.0-20.0); CO2, Blood 28 mmol/L (21-32); Calcium, Blood 10.5 mg/dL (8.5-10.1); Chloride, Blood 94 mmol/L (98-108); Creatinine, Blood 5.82 mg/dL (0.40-1.00); Glomerular Filtration Rate 9 (60-); Glucose, Blood 122 mg/dL (70-99); Magnesium, Blood 2.2 mg/dL (1.6-2.4); Potassium, Blood 3.5 mmol/L (3.5-5.5); Sodium, Blood 135 mmol/L (136-145)
[2018-09-24 10:12] LABS: Phosphorus, Blood 8.4 mg/dL (2.5-4.9)
--- NOTE | 2018-09-24 11:50 | NUR ---
HEPARIN GTT INCREASED TO 23ML/HR PER PHARMACIST URI INSTRUCTION.
--- NOTE | 2018-09-24 17:05 | NUR ---
PATIENT A/OX4, UP INDEPENDENTLY IN ROOM. WENT DOWN FOR DIALYSIS TODAY. REMAINS ON HEPARIN GTT, INCREASED TO 23 UNITS/HR THIS SHIFT. NEXT DRAW AT 1800. 20G IV TO L UPPER ARM WNL AND SL. RECEIVES MIDODRINE QID FOR HYPOTENSION. PERMCATH TO L UPPER CHEST. CALLS APPROPRIATELY FOR ASSISTANCE. NO ACUTE CHANGES THIS SHIFT.
--- NOTE | 2018-09-24 21:34 | NUR ---
2002 PT SITTING UP IN BED, DENIES ANY DISCOMFORT AT THIS TIME. PT HAS PERMACATH TO [facility], SECURE, INTACT. PT HAS HAD NO DOCUMENTED BM SINCE 09/22, SHE DECLINES STOOL SOFTENER AT THIS TIME. PT HAS AN ACTIVE FISTULA IN HER SEYMOUR. NO OTHER APPARENT SIGNS OF DISTRESS. CALL LIGHT IS IN REACH.
--- NOTE | 2018-09-24 23:10 | NUR ---
PT LYING IN BED, AWAKE, WATCHING TV ON HER ELECTRONIC DEVICE. NO APPARENT SIGNS OF DISTRESS. CALL LIGHT IS IN REACH.
--- NOTE | 2018-09-25 01:56 | NUR ---
PT LYING IN BED, EYES CLOSED, APPEARS TO BE RESTING. BREATHING IS EVEN, UNLABORD. NO APPARENT SIGNS OF DISTRESS. CALL LIGHT IS IN REACH.
--- NOTE | 2018-09-25 03:10 | NUR ---
PT IS AAO X 4, ON RA AT 96%. PT HAS HD CATH TO [facility], LAST RECIEVED HD ON 09/24/17. PT HAS FISTULA IN THE SEYMOUR, POSS PROCEDURE IN [place] TO "BRING HER FISTULA BACK TO THE SURFACE" PER PT. BRUISES ON JAYANT. PT IS ON A HEPARIN GTT, NEXT PTT IS AT 0500.
--- NOTE | 2018-09-25 03:23 | NUR ---
PT LYING IN BED, EYES CLOSED, APPEARS TO BE RESTING. WAKES EASILY TO VERBAL STIMULI. NO APPARENT SIGNS OF DISTRESS. CALL LIGHT IS IN REACH.
--- NOTE | 2018-09-25 05:54 | NUR ---
PT LYING IN BED, AWAKE. PT REQUESTING AM LABS, INCLUDING THE PTT BE DRAWN WITH HD BUT OIL WELL GUN PERFORATOR OPERATOR. LAB TALKED TO PT ABOUT THE PTT BEING A TIMED LAB TO ADJUST THE RATE OT THE HEPARING GTT. PT STILL REFUSES LABS AND STATES SHE WILL WAIT AND HAVE THEM DRAWN WITH HD BY OIL WELL GUN PERFORATOR OPERATOR. WILL PASS ON INFORMATION TO ONCOMING RN WELL. SPOKE WITH PHARMACY AND LET THEM KNOW. NO OTHER APPARENT SIGNS OF DISTRESS. CALL LIGHT IS IN REACH. NO OTHER CHANGES THIS SHIFT.
[2018-09-25 07:07] LABS: BASOPHILS ABSOLUTE AUTO 0.08 K/mm3 (0.00-0.23); BASOPHILS PERCENT AUTO 1 % (0-2); EOSINOPHILS ABSOLUTE AUTO 0.65 K/mm3 (0.00-0.68); EOSINOPHILS PERCENT AUTO 4 % (0-6); Hematocrit 29.6 % (33.0-51.0); IMMATURE GRAN ABSOLUTE AUTO 0.18 K/mm3 (0.00-0.10); IMMATURE GRAN PERCENT AUTO 1 % (0-1); LYMPHOCYTES ABSOLUTE AUTO 4.89 K/mm3 (0.84-5.20); LYMPHOCYTES PERCENT AUTO 32 % (21-46); MONOCYTES ABSOLUTE AUTO 0.85 K/mm3 (0.16-1.47); MONOCYTES PERCENT AUTO 6 % (4-13); Mean Corpuscular HGB Conc 30.4 g/dL (31.5-36.5); Mean Platelet Volume 9.5 fL (9.1-12.4); NEUTROPHILS ABSOLUTE AUTO 8.81 K/mm3 (1.96-9.15); NEUTROPHILS PERCENT AUTO 57 % (41-73); Platelet Count 365 K/mm3 (150-400); RDW Coefficient Variation 17.9 % (11.7-14.2); RDW Standard Deviation 68.3 fL (35.1-46.3); Red Blood Cell Count 2.73 M/mm3 (3.80-5.20); White Blood Cell Count 15.46 K/mm3 (4.00-11.30)
[2018-09-25 07:11] LABS: Mean Corpuscular Volume 108 fL (80-100)
[2018-09-25 07:26] LABS: Albumin, Blood 3.2 g/dL (3.4-5.0); Anion Gap 13 mmol/L (6-16); Blood Urea Nitrogen 33 mg/dL (8-24); Bun/Creatinine Ratio 6.5 (12.0-20.0); CO2, Blood 29 mmol/L (21-32); Calcium, Blood 9.8 mg/dL (8.5-10.1); Chloride, Blood 97 mmol/L (98-108); Creatinine, Blood 5.08 mg/dL (0.40-1.00); Glomerular Filtration Rate 11 (60-); Glucose, Blood 135 mg/dL (70-99); Magnesium, Blood 2.1 mg/dL (1.6-2.4); Phosphorus, Blood 7.7 mg/dL (2.5-4.9); Sodium, Blood 139 mmol/L (136-145)
[2018-09-25] MEDS ORDERED: ENOX100I SC (13:26)
--- NOTE | 2018-09-25 13:46 | NUR ---
PATIENT D/C'D TO HOME. D/C INSTRUCTIONS AND EDUCATION DISCUSSED WITH PATIENT PRIOR TO D/C AND COPY PROVIDED. PATIENT DEMONSTRATED GIVING HERSELF A LOVENOX INJECTION AND DENIES ANY FURTHER QUESTIONS.
== END 2018-09-25 13:50 | disposition home or self-care (01) | DRG 299 ==
LOC: ER 16:51 → MEDS 20:02 → ENPENDDIS 09-25 13:29 → MEDS 09-25 13:50
PROVIDERS: Emergency Medicine; Internal Medicine; Internal Medicine Nephrology; Nurse Practitioner Acute Care; Physician Assistant; ADMIT Internal Medicine
DX: I87.1 Compression of vein (principal); N18.6 End stage renal disease; I42.0 Dilated cardiomyopathy; Z94.0 Kidney transplant status; E87.1 Hypo-osmolality and hyponatremia; I82.729 Chronic embolism and thrombosis of deep veins of unspecified upper extremity; I12.0 Hypertensive chronic kidney disease with stage 5 chronic kidney disease or end stage renal disease; Z86.711 Personal history of pulmonary embolism; G43.909 Migraine, unspecified, not intractable, without status migrainosus; Z86.14 Personal history of Methicillin resistant Staphylococcus aureus infection; Z95.2 Presence of prosthetic heart valve; Z99.2 Dependence on renal dialysis; F41.9 Anxiety disorder, unspecified; E89.2 Postprocedural hypoparathyroidism; E87.6 Hypokalemia; I95.9 Hypotension, unspecified; E87.70 Fluid overload, unspecified; E83.39 Other disorders of phosphorus metabolism
CPT/HCPCS: 36415; 71046; 80048; 80053; 80069; 83036; 83735; 84132; 84484; 85014; 85018; 85025; 85027; 85610; 85730; 93005; 93010; 93970; 96365; 96374; 99285-25; J0878; J0881; J1200; J1644; J1650

== ENCOUNTER 2018-09-27 07:11 | Day surgery (SDC) | payer MEDICARE, OTHER ==
[~2018-09-27 07:11] MED LIST changes: +ENOX100I SC
--- NOTE | 2018-09-27 15:36 | NUR ---
SN WAS WITH PT DOING ASSESSMENT AND H/P.
--- NOTE | 2018-09-27 17:02 | NUR ---
Patient gave permission for this director nursing service to access medical records, perform assessment, and provide care on 09/27/2018
== END 2018-09-27 15:34 | disposition home or self-care (01) ==
LOC: ATC 07:11
DX: I82.B19 Acute embolism and thrombosis of unspecified subclavian vein (principal); N18.6 End stage renal disease; E11.22 Type 2 diabetes mellitus with diabetic chronic kidney disease; E11.69 Type 2 diabetes mellitus with other specified complication; K21.9 Gastro-esophageal reflux disease without esophagitis; F32.9 Major depressive disorder, single episode, unspecified; Z79.52 Long term (current) use of systemic steroids; Z99.2 Dependence on renal dialysis; Z79.899 Other long term (current) drug therapy; Z86.14 Personal history of Methicillin resistant Staphylococcus aureus infection; Z79.4 Long term (current) use of insulin
CPT/HCPCS: 96365; J0878

== ENCOUNTER 2018-09-29 00:18 | Day surgery (SDC) | payer MEDICARE, OTHER | END 2018-09-29 12:05 | disposition home or self-care (01) | LOC: ATC 00:18 | DX: I82.B19 Acute embolism and thrombosis of unspecified subclavian vein (principal); I12.0 Hypertensive chronic kidney disease with stage 5 chronic kidney disease or end stage renal disease; N18.6 End stage renal disease; D63.1 Anemia in chronic kidney disease; E11.9 Type 2 diabetes mellitus without complications; K21.9 Gastro-esophageal reflux disease without esophagitis; Z79.52 Long term (current) use of systemic steroids; Z99.2 Dependence on renal dialysis; Z79.899 Other long term (current) drug therapy; Z86.14 Personal history of Methicillin resistant Staphylococcus aureus infection | CPT/HCPCS: 96365; 96375; J0878 ==

== ENCOUNTER 2018-10-01 00:22 | Day surgery (SDC) | payer MEDICARE, OTHER | END 2018-10-01 11:35 | disposition home or self-care (01) | LOC: ATC 00:22 | DX: I12.0 Hypertensive chronic kidney disease with stage 5 chronic kidney disease or end stage renal disease (principal); N18.6 End stage renal disease; R50.9 Fever, unspecified; Z86.14 Personal history of Methicillin resistant Staphylococcus aureus infection; Z99.2 Dependence on renal dialysis | CPT/HCPCS: 96365; J0878 ==

== ENCOUNTER 2018-10-03 10:53 | Day surgery (SDC) | payer MEDICARE, OTHER ==
--- NOTE | 2018-10-03 11:54 | NUR ---
HD CATH CARE: MARIO BRANCH CHIEF PROVIDED INSERVICE TRAINING ON ACCESSING AND DEACCESSING HD CATH FOR PT. ACCESSED AND DEACCESSED TODAY PER PROTOCOL.
== END 2018-10-03 11:49 | disposition home or self-care (01) ==
LOC: ATC 10:53
DX: R50.9 Fever, unspecified (principal); N18.6 End stage renal disease; Z99.2 Dependence on renal dialysis; I12.0 Hypertensive chronic kidney disease with stage 5 chronic kidney disease or end stage renal disease; Z86.14 Personal history of Methicillin resistant Staphylococcus aureus infection
CPT/HCPCS: 96365; J0878

== ENCOUNTER 2018-10-05 00:17 | Day surgery (SDC) | payer MEDICARE, OTHER | END 2018-10-05 11:47 | disposition home or self-care (01) | LOC: ATC 00:17 | DX: I12.0 Hypertensive chronic kidney disease with stage 5 chronic kidney disease or end stage renal disease (principal); R50.9 Fever, unspecified; N18.6 End stage renal disease; Z99.2 Dependence on renal dialysis; Z86.14 Personal history of Methicillin resistant Staphylococcus aureus infection | CPT/HCPCS: 96365; 96375; J0878 ==

== ENCOUNTER 2018-10-07 00:16 | Day surgery (SDC) | payer MEDICARE, OTHER | END 2018-10-07 11:40 | disposition home or self-care (01) | LOC: ATC 00:16 | DX: A49.02 Methicillin resistant Staphylococcus aureus infection, unspecified site (principal); Z99.2 Dependence on renal dialysis; E11.22 Type 2 diabetes mellitus with diabetic chronic kidney disease; I12.0 Hypertensive chronic kidney disease with stage 5 chronic kidney disease or end stage renal disease; N18.6 End stage renal disease; D63.1 Anemia in chronic kidney disease; F32.9 Major depressive disorder, single episode, unspecified | CPT/HCPCS: 96365; J0878 ==

== ENCOUNTER 2018-10-09 10:33 | Day surgery (SDC) | payer MEDICARE, OTHER | END 2018-10-09 23:05 | disposition home or self-care (01) | LOC: ATC 10:33 | DX: A49.02 Methicillin resistant Staphylococcus aureus infection, unspecified site (principal); Z99.2 Dependence on renal dialysis | CPT/HCPCS: 96365; J0878 ==

== ENCOUNTER 2018-10-11 00:11 | Day surgery (SDC) | payer MEDICARE, OTHER | END 2018-10-11 10:47 | disposition home or self-care (01) | LOC: ATC 00:11 | DX: A49.02 Methicillin resistant Staphylococcus aureus infection, unspecified site (principal) | CPT/HCPCS: 96374; J0878 ==

== ENCOUNTER 2018-10-13 00:05 | Day surgery (SDC) | payer MEDICARE, OTHER | END 2018-10-13 11:25 | disposition home or self-care (01) | LOC: ATC 00:05 | DX: R50.9 Fever, unspecified (principal); I12.0 Hypertensive chronic kidney disease with stage 5 chronic kidney disease or end stage renal disease; N18.6 End stage renal disease; Z99.2 Dependence on renal dialysis; Z86.14 Personal history of Methicillin resistant Staphylococcus aureus infection | CPT/HCPCS: 96365; J0878 ==

== ENCOUNTER 2018-10-16 22:32 | Emergency (ER) | payer MEDICARE, OTHER ==
[~2018-10-16] VITALS: Ht 147.3 cm; Wt 59.0 kg
[2018-10-16 23:27] LABS: BASOPHILS ABSOLUTE AUTO 0.08 K/mm3 (0.00-0.23); BASOPHILS PERCENT AUTO 1 % (0-2); EOSINOPHILS PERCENT AUTO 3 % (0-6); Hematocrit 38.5 % (33.0-51.0); Hemoglobin 11.8 g/dL (11.5-16.0); IMMATURE GRAN ABSOLUTE AUTO 0.04 K/mm3 (0.00-0.10); IMMATURE GRAN PERCENT AUTO 0 % (0-1); LYMPHOCYTES ABSOLUTE AUTO 2.26 K/mm3 (0.84-5.20); LYMPHOCYTES PERCENT AUTO 21 % (21-46); MONOCYTES PERCENT AUTO 8 % (4-13); Mean Corpuscular HGB 33.1 pg (26.0-34.0); Mean Corpuscular HGB Conc 30.6 g/dL (31.5-36.5); Mean Corpuscular Volume 108 fL (80-100); Mean Platelet Volume 10.5 fL (9.1-12.4); NEUTROPHILS ABSOLUTE AUTO 7.12 K/mm3 (1.96-9.15); NEUTROPHILS PERCENT AUTO 67 % (41-73); Platelet Count 362 K/mm3 (150-400); RDW Coefficient Variation 17.2 % (11.7-14.2); RDW Standard Deviation 68.5 fL (35.1-46.3); Red Blood Cell Count 3.56 M/mm3 (3.80-5.20)
[2018-10-17 00:08] LABS: Alanine Aminotransfer (ALT/SGP 43 U/L (12-78); Albumin, Blood 4.2 g/dL (3.4-5.0); Albumin/Globulin Ratio 0.9 (0.8-1.8); Alk Phos 168 U/L (50-136); Anion Gap 13 mmol/L (6-16); Aspartate Aminotrans (AST/SGOT 28 U/L (12-37); Bilirubin, Total 0.3 mg/dL (0.1-1.0); Blood Urea Nitrogen 26 mg/dL (8-24); Bun/Creatinine Ratio 6.3 (12.0-20.0); CO2, Blood 27 mmol/L (21-32); Calcium, Blood 9.4 mg/dL (8.5-10.1); Chloride, Blood 98 mmol/L (98-108); Creatinine, Blood 4.11 mg/dL (0.40-1.00); Globulin, Blood 4.9 g/dL (2.2-4.0); Glomerular Filtration Rate 14 (60-); Glucose, Blood 147 mg/dL (70-99); Potassium, Blood 4.4 mmol/L (3.5-5.5); Sodium, Blood 138 mmol/L (136-145); Total Protein, Blood 9.1 g/dL (6.4-8.2); Troponin I <0.015 ng/mL (0.000-0.040)
[2018-10-17] MEDS ORDERED: Zofran8 MG PO (00:32)
== END 2018-10-17 00:32 | disposition home or self-care (01) ==
LOC: ER 22:32
PROVIDERS: Emergency Medicine
DX: E11.22 Type 2 diabetes mellitus with diabetic chronic kidney disease (principal); N18.6 End stage renal disease; I95.9 Hypotension, unspecified; Z88.1 Allergy status to other antibiotic agents; Z88.8 Allergy status to other drugs, medicaments and biological substances; Z79.899 Other long term (current) drug therapy; Z86.711 Personal history of pulmonary embolism; Z95.2 Presence of prosthetic heart valve; Z94.0 Kidney transplant status; Z99.2 Dependence on renal dialysis
CPT/HCPCS: 36415; 80053; 84484; 85025; 93005; 93010; 96374; 99285-25; J2405; J7030

== ENCOUNTER → 2018-10-28 | Outpatient (CLI) | payer MEDICARE, OTHER ==
[~2018-10-28] MED LIST changes: +Zofran8 MG PO
== END | disposition home or self-care (01) ==
LOC: LAB SHORT 10:50 → LAB 10:50
PROVIDERS: Obstetrics & Gynecology
DX: Z01.419 Encounter for gynecological examination (general) (routine) without abnormal findings (principal)
CPT/HCPCS: G0123

== ENCOUNTER 2018-11-11 13:04 | Day surgery (SDC) | payer MEDICARE, OTHER ==
[~2018-11-11] VITALS: Ht 147.3 cm; Wt 59.0 kg
[2018-11-11] MEDS ORDERED: ALPR.5 PO (13:39)
[2018-11-11] MEDS ORDERED: PROM25 PO (13:40)
--- NOTE | 2018-11-11 17:07 | NUR ---
7800-RECEIVED THIS PATIENT FROM THE [facility]. PT HAD A FISTULOGRAM DONE TO HER R ARM W/ SUTURES IN PLACE WHICH WILL BE REMOVED WHEN SHE GOES HOME. LEFT CHEST DIALYSIS CATH WAS REPLACED BY DR. ISRAEL. PT DENIES ANY SHORTNESS OF BREATH. ON ROOM AIR. FACE SLIGHTLY RED. DENIES ITCHING. PT IS ALERT AND ORIENTED. FOLLOWING COMMANDS.
--- NOTE | 2018-11-11 19:01 | NUR ---
1800-DRESSING CHANGED TO L CHEST DIALYSIS CATH RE: SLIGHT BLOOD OOZING FROM INSERTION SITE. 1815-REMOVED SUTURES FROM FISTULA SITE. ONE SITE STARTED BLEEDING HARD. APPLIED PRESSURE. DR. ISRAEL WAS NOTIFIED. HE ORDERED TO CONTINUE TO DO MANUAL LIGHT PRESSURE TO THE BLEEDING AREA. DC ALL SUTURES PREVIOUSLY ORDERED AND MAY USE OSCAR DRESSING. 1820-SUTURES WERE ALL REMOVED. BLEEDING HAS STOPPED. OSCAR DRESSING IN PLACE TO BOTH SITES OF THE SEYMOUR. DISCONTINUED IV AT R SHOULDER. 1830-PT WAS DISCHARGED AT THIS TIME. DISCHRAGE INSTRUCTIONS WERE GIVEN.
== END 2018-11-11 18:30 | disposition home or self-care (01) ==
LOC: MHTC 13:04 → ICUE 16:13 → MHTC 18:30
PROC: 0J2TXYZ Change Other Device in Trunk Subcutaneous Tissue and Fascia, External Approach (ICD-10-PCS; principal; 2018-11-11)
PROC: 03783ZZ Dilation of Left Brachial Artery, Percutaneous Approach (ICD-10-PCS; principal; 2018-11-11)
PROC: 05743ZZ Dilation of Left Innominate Vein, Percutaneous Approach (ICD-10-PCS; principal; 2018-11-11)
DX: T82.828A Fibrosis due to vascular prosthetic devices, implants and grafts, initial encounter (principal); T82.858A Stenosis of other vascular prosthetic devices, implants and grafts, initial encounter; N18.6 End stage renal disease; I42.0 Dilated cardiomyopathy; R03.1 Nonspecific low blood-pressure reading; I34.0 Nonrheumatic mitral (valve) insufficiency; Z88.8 Allergy status to other drugs, medicaments and biological substances; Z88.1 Allergy status to other antibiotic agents; Z91.041 Radiographic dye allergy status; Z99.2 Dependence on renal dialysis; Z94.0 Kidney transplant status; Z79.899 Other long term (current) drug therapy
CPT/HCPCS: 36581; 36598; 36902; 36907; 37248; 76937; 99152; 99153; C1725; C1750; C1769; C1887; C1894; J1200; J1630; J1644; J1720; J2250; J3010; J7030; J7040; Q9967

== ENCOUNTER 2019-01-25 07:30 | Day surgery (SDC) | payer MEDICARE, OTHER | END 2019-01-25 22:57 | disposition home or self-care (01) | LOC: WOUND 07:30 | DX: S61.001A Unspecified open wound of right thumb without damage to nail, initial encounter (principal); S61.202A Unspecified open wound of right middle finger without damage to nail, initial encounter; S61.200A Unspecified open wound of right index finger without damage to nail, initial encounter; N18.6 End stage renal disease; D63.1 Anemia in chronic kidney disease; E78.5 Hyperlipidemia, unspecified; I42.9 Cardiomyopathy, unspecified | CPT/HCPCS: 87070; 87077; 87081; 87147; 87186; 87205; G0463 ==

== ENCOUNTER 2019-02-03 00:31 | Day surgery (SDC) | payer MEDICARE, OTHER | END 2019-02-03 22:38 | disposition home or self-care (01) | LOC: WOUND 00:31 | DX: S61.001A Unspecified open wound of right thumb without damage to nail, initial encounter (principal); S61.200A Unspecified open wound of right index finger without damage to nail, initial encounter; I50.9 Heart failure, unspecified; I25.2 Old myocardial infarction; N18.6 End stage renal disease; D63.1 Anemia in chronic kidney disease; E78.5 Hyperlipidemia, unspecified ==

== ENCOUNTER 2019-02-10 00:49 | Day surgery (SDC) | payer MEDICARE, OTHER | END 2019-02-10 22:39 | disposition home or self-care (01) | LOC: WOUND 00:49 | DX: S61.001A Unspecified open wound of right thumb without damage to nail, initial encounter (principal); I50.9 Heart failure, unspecified; I25.2 Old myocardial infarction; N18.6 End stage renal disease; D63.1 Anemia in chronic kidney disease | CPT/HCPCS: G0463 ==

== ENCOUNTER 2019-02-17 18:28 | Inpatient (IN) | payer MEDICARE, OTHER ==
[~2019-02-17] VITALS: Ht 147.3 cm; Wt 57.9 kg
[~2019-02-17 18:28] MED LIST changes: -MIDO5 PO; +Midodrine HCl10 MG PO; -OMEPRAZOLE MAGN20 MG PO; -TOPI100 PO
[2019-02-17 19:10] LABS: BASOPHILS ABSOLUTE AUTO 0.03 K/mm3 (0.00-0.23); BASOPHILS PERCENT AUTO 0 % (0-2); EOSINOPHILS PERCENT AUTO 1 % (0-6); Hematocrit 32.2 % (33.0-51.0); Hemoglobin 9.9 g/dL (11.5-16.0); IMMATURE GRAN ABSOLUTE AUTO 0.03 K/mm3 (0.00-0.10); IMMATURE GRAN PERCENT AUTO 0 % (0-1); LYMPHOCYTES ABSOLUTE AUTO 1.02 K/mm3 (0.84-5.20); LYMPHOCYTES PERCENT AUTO 10 % (21-46); MONOCYTES ABSOLUTE AUTO 0.51 K/mm3 (0.16-1.47); MONOCYTES PERCENT AUTO 5 % (4-13); Mean Corpuscular HGB 31.5 pg (26.0-34.0); Mean Corpuscular HGB Conc 30.7 g/dL (31.5-36.5); Mean Corpuscular Volume 103 fL (80-100); Mean Platelet Volume 12.2 fL (9.1-12.4); NEUTROPHILS PERCENT AUTO 84 % (41-73); Platelet Count 168 K/mm3 (150-400); RDW Coefficient Variation 16.2 % (11.7-14.2); RDW Standard Deviation 61.5 fL (35.1-46.3); Red Blood Cell Count 3.14 M/mm3 (3.80-5.20); White Blood Cell Count 10.79 K/mm3 (4.00-11.30)
[2019-02-17 19:35] LABS: Albumin, Blood 3.8 g/dL (3.4-5.0); Albumin/Globulin Ratio 0.9 (0.8-1.8); Bilirubin, Total 0.5 mg/dL (0.1-1.0); Bun/Creatinine Ratio 5.8 (12.0-20.0); Calcium, Blood 9.1 mg/dL (8.5-10.1); Creatinine, Blood 6.4 mg/dL (0.40-1.00); Globulin, Blood 4.4 g/dL (2.2-4.0); Potassium, Blood 3.1 mmol/L (3.5-5.5); Total Protein, Blood 8.2 g/dL (6.4-8.2)
[2019-02-17] MEDS ORDERED: PROM25 PO (21:56)
[2019-02-17] MEDS ORDERED: TOPI100 PO (21:56)
[2019-02-17] MEDS ORDERED: NATPARA50 MCG SC (21:56)
[2019-02-17] MEDS ORDERED: GABA100 PO (21:56)
[2019-02-17] MEDS ORDERED: OMEPRAZOLE MAGN20 MG PO (21:56)
[2019-02-17] MEDS ORDERED: NORTHERA100 MG PO (21:56)
--- NOTE | 2019-02-17 22:20 | NUR ---
CALLED TO ER FAST TRACK PER CONSULT DR URIBE TO OBTAIN BLOOD CULTURE FROM EACH LUMEN OF RECENTLY PLACED HEMODIALYSIS CVC. PATIENT FEBRILE AND PENDING ADMIT TO FLOOR FOR IV ANTIBIOTIC THERAPY. BOTH PORTS ASPIRATED EASILY AND SAMPLES WERE OBTAINED, LABELED AND TRANSPORTED TO LAB. CVC LUMEN WERE FLUSHED, ANTI-COAGULATED AND CAPPED.
[2019-02-17 23:27] LABS: Potassium, Blood 3.1 mmol/L (3.5-5.5)
[2019-02-18 04:19] LABS: Hematocrit 22.1 % (33.0-51.0); Hemoglobin 6.9 g/dL (11.5-16.0); Mean Corpuscular HGB 31.4 pg (26.0-34.0); Mean Corpuscular HGB Conc 31.2 g/dL (31.5-36.5); Mean Corpuscular Volume 101 fL (80-100); Mean Platelet Volume 12.5 fL (9.1-12.4); Platelet Count 166 K/mm3 (150-400); RDW Coefficient Variation 16.4 % (11.7-14.2); RDW Standard Deviation 60.2 fL (35.1-46.3); White Blood Cell Count 17.71 K/mm3 (4.00-11.30)
[2019-02-18 04:40] LABS: Alanine Aminotransfer (ALT/SGP 20 U/L (12-78); Albumin/Globulin Ratio 0.8 (0.8-1.8); Alk Phos 117 U/L (50-136); Anion Gap 13 mmol/L (6-16); Aspartate Aminotrans (AST/SGOT 15 U/L (12-37); Bilirubin, Total 0.6 mg/dL (0.1-1.0); Blood Urea Nitrogen 41 mg/dL (8-24); Bun/Creatinine Ratio 5.7 (12.0-20.0); CO2, Blood 25 mmol/L (21-32); Calcium, Blood 8.1 mg/dL (8.5-10.1); Chloride, Blood 94 mmol/L (98-108); Creatinine, Blood 7.22 mg/dL (0.40-1.00); Glomerular Filtration Rate 7 (60-); Glucose, Blood 179 mg/dL (70-99); Magnesium, Blood 1.7 mg/dL (1.6-2.4); Phosphorus, Blood 3.1 mg/dL (2.5-4.9); Potassium, Blood 3.9 mmol/L (3.5-5.5); Sodium, Blood 132 mmol/L (136-145)
--- NOTE | 2019-02-18 05:25 | NUR ---
SHIFT SUMMARY: PATIENT ARRIVED TO [facility] [place] AT APPROX 2330 VIA WHEELCHAIR FROM ER, PATIENT ALERT AND ORIENTED, SKIN C/D/I/, AMBULATING WELL. ADMISSION COMPLETED, PATIENT ORIENTED TO ROOM, CALL LIGHT AND HOSPITAL POLICIES. PATIENT SBP VERY LOW BUT PATIENT STATES THIS IS NORMAL FOR HER, ASYMMPTOMATIC AT THIS TIME AND RECIEVING IVF PER MD ORDERS. L CHEST PORTACATH SITE LOOKS SWOLLEN AND SLIGHTLY RED, PATIENT STATES IT IS TENDER. JOJO HAS BEEN IN TO SEE PATIENT. PATIENT IS ANURIC, HAD DIALYSIS 02/16/19.
--- NOTE | 2019-02-18 18:36 | NUR ---
PATIENT HAD DIALYSIS THIS SHIFT, TOLERATED WELL. EARLY ON THIS SHIFT PATIENT HAD FEVER , TYLENOL GIVEN AND IT RETURNED TO NORMAL. PAIN MEDS CHANGED TO DILAUDID Q3. PATIENT HAS HAD NO COMPLAINTS OTHER THAN PAIN. FRIEND AT BEDSIDE. LABS CAME BACK GRAM + COCCI IN CLUSTERS . DOC NOTIFIED.
--- NOTE | 2019-02-18 19:30 | NUR ---
ASSUMED CARE PT RESTING IN ROOM COMFORTABLY AT THIS TIME. PER DAY SHIFT PT HAD NO ACUTE CHANGES IN STATUS. PT DID HAVE DIALYSIS TODAY AND RECIEVED 2 UNITS PRBC'S W/ DIALYSIS. PT HAD EPISODE OF FEVER TODAY AND WAS MEDICATED PER EMAR. PT NON FEBRILE AT THIS TIME. IVF INFUING IN PIV AT THIS TIME AT 50ML/HOUR. PT REPORTING PAIN TO L CHEST AT DIALYSIS PORT ACCESS SITE. REPORTS IS TENDER AND PAINFUL. PT IS INDEPENDENT IN ROOM TO RR, IS ANURIC. RESP EVEN UNLABORED ON RA W/ SATS >92%. PT DENIES OTHER NEEDS AT THIS TIME. CALL LIGHT IN REACH.
--- NOTE | 2019-02-19 06:27 | NUR ---
SHIFT SUMMARY PT SLEEPING IN ROOM COMFORTABLY AT THSI TIME. NO ACUTE CHANGES IN STATUS T/O NIGHT. PT WAS HYPOTENSIVE T/O NIGHT BUT VITALS WERE CONSISTENT W/ PT BASELINE. PT PAINFUL T/O NIGHT AT PORT SITE AND CHEST WALL. PT WAS MEDICATED PER EMAR, AND ICE PACK WAS PROVIDED FOR HEAT AND PAIN TO AREA. PT REMAINED AFEBRILE T/O NIGHT. RESP EVEN UNLABORED ON RA W/ SATS >92%. DENIES OTHER NEEDS AT THIS TIME. CALL LIGHT IN REACH. WILL REPORT OFF TO DAY RN.
--- NOTE | 2019-02-19 08:15 | NUR ---
CONSULTATION UPDATE: SPOKE WITH DR. ISRAEL, HE WOULD LIKE PT TO BE DIALYZED ON THURSDAY THEN POSSIBLE PROCEDURE ON THURSDAY.
[2019-02-19 08:51] LABS: Hematocrit 34.2 % (33.0-51.0); Hemoglobin 10.9 g/dL (11.5-16.0); Mean Corpuscular HGB 30.7 pg (26.0-34.0); Mean Corpuscular HGB Conc 31.9 g/dL (31.5-36.5); Mean Platelet Volume 12.3 fL (9.1-12.4); Platelet Count 139 K/mm3 (150-400); RDW Coefficient Variation 18.6 % (11.7-14.2); RDW Standard Deviation 65.7 fL (35.1-46.3); Red Blood Cell Count 3.55 M/mm3 (3.80-5.20); White Blood Cell Count 8.79 K/mm3 (4.00-11.30)
--- NOTE | 2019-02-19 08:51 | NUR ---
Call to Dr. Culp this morning for concern of pt being tremulous, somewhat lethargic, hypotensive, febrile, tachycardic, and hypoxia on room air. O2 was started at 2 l/min, resolution of hypoxia and lethargy within minutes. Tremulous shaking of hands and arms also resolved. Dr. Culp came and saw the patient. At this time, Vivek is being taken down for CT scan. Other orders noted as well. IV fluids infusing at 100 cc/hour and IV antibiotic infusing. Pt was given pain medication just before leaving. She was tearful, states that she can't understand conversation in the room unless the person is close beside her talking to her face to face due to hearing loss. Pt also states that she is afraid that she is being "a pain, or a bother" to staff. I sat on the bedside, took her hand and assured her that she is in no way a bother to us, that we are here to take care of her and that she is just as important as any other person. Affirmed that we want to do our best to help her to get better. She expressed appreciation and understanding of this.
--- NOTE | 2019-02-19 08:54 | NUR ---
DIALYSIS PT DIDN'T HAVE LABS DRAWN, REQUESTED THAT DIALYSIS DO IT FROM HER PORT (DIFFICULT STICK). CALLED DR URIBE, TOLD HIM THAT WE DIDN'T HAVE LABS YET AND THAT I WOULD DRAW THEM. HE SAID HE WANTED A TX DONE TODAY. WENT TO SEE PT, HER RN CAME IN WELL. WE HAD TROUBLE WAKING HER UP. SHE IS JERKY AND SLOW TO RESPOND. HER BP IS IN THE 60. HR 120'S. O2 SATS ALITTLE LOW. CALLED DR URIBE. HE SAID TO HOLD TX UNTIL LAB RESULTS. [facility]. WILL CALL DR URIBE WITH RESULTS.
[2019-02-19 08:57] LABS: Mean Corpuscular Volume 96 fL (80-100)
[2019-02-19 09:00] LABS: Albumin, Blood 2.8 g/dL (3.4-5.0); Anion Gap 11 mmol/L (6-16); Blood Urea Nitrogen 32 mg/dL (8-24); Bun/Creatinine Ratio 4.8 (12.0-20.0); CO2, Blood 27 mmol/L (21-32); Chloride, Blood 91 mmol/L (98-108); Creatinine, Blood 6.61 mg/dL (0.40-1.00); Glomerular Filtration Rate 8 (60-); Glucose, Blood 132 mg/dL (70-99); Magnesium, Blood 1.9 mg/dL (1.6-2.4); Phosphorus, Blood 5.3 mg/dL (2.5-4.9); Potassium, Blood 4.1 mmol/L (3.5-5.5); Sodium, Blood 129 mmol/L (136-145)
--- NOTE | 2019-02-19 10:16 | NUR ---
ECHOCARDIOGRAM COMPLETE
--- NOTE | 2019-02-19 10:39 | NUR ---
ECHOCARDIOGRAM COMPLETE
--- NOTE | 2019-02-19 12:02 | NUR ---
Noted pt is not taking phosphorous binder; phos level is 5.3 and calcium is 8.0. Dr. Stover called, and new orders received. The pt is sitting up in bed, talking, wide awake, and without any complaints at this time. She is eating lunch. Blood pressure remains low, but her friend was able to bring in her Northera medication so it was administered, as the midodrine has had no effect on her blood pressure. She is receiving IV fluids as ordered since this morning. Lung sounds are clear, she denies any difficulty breathing, and she is no longer requiring any supplemental oxygen.
--- NOTE | 2019-02-19 12:47 | NUR ---
the pt is bright, cheerful and conversant. States pain medication has relieved her left chest and back pain from 7/10 to 4/10 at this time. Blood pressure remains low, IV fluids are infusing slowly, and Northera administration done. Continuing to closely monitor the vital signs for improvement.
--- NOTE | 2019-02-19 14:37 | NUR ---
Gus states that she is feeling fine, denies any difficulty breathing, or other discomfort. She is lying in bed watching shows on her tablet and phone. Blood pressure has improved to above 80mmHg systolic.
--- NOTE | 2019-02-19 19:40 | NUR ---
ASSUMED CARE PT RESTING IN ROOM COMFORTABLY AT THIS TIME. PER DAY SHIFT PT HAD SEVERAL CHANGES IN STATUS T/O DAY. PT SPIKED FEVER, AND WAS SOLULENT D/T LOW BP. PER DAY SHIFT PT FAMILY BROUGHT IN HOME MED FOR, AND BP'S HAVE SINCE INCREASED. OTHER PAIN MEDS BESIDES PRN DILAUDID WERE HELD. PT RECEIVING IVF PIV FOR PRESSURES, PER ORDERS MONITORING CLOSELY FOR FLUID OVERLOAD. RESP EVEN UNLBAORED ON RA AT THIS TIME W/ SATS >95%, LS CLEAR T/O. PT REPORTS PAIN TO PORT AREA IS UNDER CONTROL AT THSI TIME. DENIES OTHER NEEDS. PT REPORTS WANTS TO GO ON WALK TO GET OUT OF ROOM. IVF AND PUMP TO GO W/ PT.
--- NOTE | 2019-02-20 03:12 | NUR ---
ASSUMING CARE REPORT RECEIVED FROM JORGE SCHULZ. ASSUMING CARE OF PATIENT AT THIS TIME.
--- NOTE | 2019-02-20 03:32 | NUR ---
SHIFT SUMMARY REPORT GIVEN OFF TO STEPHIE RN FOR THIS RN BEING SENT HOME LOW CENSUS. NO ACUTE CHANGES IN STATUS FOR PT. IV ACCESS WAS LOST AT APROX 2100. TACKER ELASTIC BAND WAS ABLE TO COME AND GET 22G IV IN R INDEX FINGER FOR ACCESS. ABX AND IVF INFUSING THROUGH SITE AND REDUCED RATE TO PROTECT ACCESS. RESP EVEN UNLABORED ON RA W/ SATS >92%, LS CLEAR T/O. PT DENIES ANY SOB, REPORTS FEELS GOOD. PT CONT TO REPORT PAIN IN L CHEST WALL AT J[facility]IS CATH SITE. ICE PACKS PROVIDED, AND PT MEDICATED PER EMAR. PT DENIES OTHER NEEDS AT THIS TIME. VVS, SBP 80'S, PRN HOME MED FOR HYPOTENSION TO BE ADMINISTERED IN AM BEFORE DIALYSIS. CALL LIGHT IN REACH.
--- NOTE | 2019-02-20 06:51 | NUR ---
END OF SHIFT NOTE: PATIENT PLEASENT AND COOPERATIVE. PATIENT CURRENTLY SITTING UP IN BED WATCHING TV. PATIENT DENIES ANY NEEDS AT THIS TIME. WILL CONTINUE TO MONITOR PATIENT AND REPORT TO ON COMING RN.
--- NOTE | 2019-02-20 10:25 | NUR ---
DIALYSIS LAB IN TRYING TO GET A SET OF BLOOD CULTURES, SHE IS A VERY HARD STICK. HE TOOK A WHILE BUT HE GOT THE SAMPLES NEEDED. STARTED TREATMENT AFTER HE WAS COMPLETED. I [facility] 1 SET OF BLOOD CULTURES AND SOME LABS AFTER I GOT HER ON.
--- NOTE | 2019-02-20 10:27 | NUR ---
AM NOTE PT ALERT AND ORIENTED. SR. NO ECTOPY. PT UP IN ROOM AD BERTHA. TALKED WITH PT ABOUT ALTERNATIVE IV ACCESS SHOULD THE RIGHT INDEX FINGER IV FAIL. CONFIRMED WITH DR GUERRA AND MARIO RN THAT AN EJ IS OK TO PLACE IF NEEDED. DOUBLE CHECKED WITH DR GUERRA ABOUT HEPARIN TX CONSIDERING DR GOYAL MAY DO SURGERY TOMORROW. SHE DID NOT CHANGE OR HOLD THE HEPARIN. VSS. DIALYSIS STARTED. BENADRYL GIVEN AT START. BLOOD CULTURES OBTAINED. 2 SETS ONE FROM THE HECK AND ONE FROM HER HAND. MEDICATED FOR PAIN X1 WITH DILAUDID. PT STATED THAT ORAL PAIN MEDICATIONS DON'T WORK FOR HER. DR URIBE HERE TO SEE PT. NO ORDERS AT THIS TIME. CONTINUE POT.
[2019-02-20 10:28] LABS: BASOPHILS ABSOLUTE AUTO 0.01 K/mm3 (0.00-0.23); BASOPHILS PERCENT AUTO 0 % (0-2); EOSINOPHILS ABSOLUTE AUTO 0.13 K/mm3 (0.00-0.68); EOSINOPHILS PERCENT AUTO 3 % (0-6); Hematocrit 29.5 % (33.0-51.0); Hemoglobin 9.6 g/dL (11.5-16.0); IMMATURE GRAN ABSOLUTE AUTO 0.01 K/mm3 (0.00-0.10); IMMATURE GRAN PERCENT AUTO 0 % (0-1); LYMPHOCYTES ABSOLUTE AUTO 0.68 K/mm3 (0.84-5.20); LYMPHOCYTES PERCENT AUTO 18 % (21-46); MONOCYTES ABSOLUTE AUTO 0.23 K/mm3 (0.16-1.47); MONOCYTES PERCENT AUTO 6 % (4-13); Mean Corpuscular HGB 31.5 pg (26.0-34.0); Mean Corpuscular HGB Conc 32.5 g/dL (31.5-36.5); Mean Corpuscular Volume 97 fL (80-100); Mean Platelet Volume 11.3 fL (9.1-12.4); NEUTROPHILS ABSOLUTE AUTO 2.76 K/mm3 (1.96-9.15); NEUTROPHILS PERCENT AUTO 72 % (41-73); Platelet Count 94 K/mm3 (150-400); RDW Coefficient Variation 17.5 % (11.7-14.2); RDW Standard Deviation 62.5 fL (35.1-46.3); Red Blood Cell Count 3.05 M/mm3 (3.80-5.20); White Blood Cell Count 3.82 K/mm3 (4.00-11.30)
[2019-02-20 10:41] LABS: Alanine Aminotransfer (ALT/SGP 65 U/L (12-78); Albumin, Blood 2.7 g/dL (3.4-5.0); Albumin/Globulin Ratio 0.8 (0.8-1.8); Alk Phos 414 U/L (50-136); Anion Gap 10 mmol/L (6-16); Aspartate Aminotrans (AST/SGOT 115 U/L (12-37); Bilirubin, Total 0.8 mg/dL (0.1-1.0); Blood Urea Nitrogen 38 mg/dL (8-24); CO2, Blood 27 mmol/L (21-32); Chloride, Blood 93 mmol/L (98-108); Creatinine, Blood 7.54 mg/dL (0.40-1.00); Globulin, Blood 3.5 g/dL (2.2-4.0); Glomerular Filtration Rate 7 (60-); Glucose, Blood 96 mg/dL (70-99); Magnesium, Blood 1.8 mg/dL (1.6-2.4); Phosphorus, Blood 4.2 mg/dL (2.5-4.9); Potassium, Blood 3.6 mmol/L (3.5-5.5); Sodium, Blood 130 mmol/L (136-145); Total Protein, Blood 6.2 g/dL (6.4-8.2)
--- NOTE | 2019-02-20 11:21 | NUR ---
E[facility] CALLED ELEVATED LFTS TO DR GUERRA. ORDER TO D/C ZYVOX AND MAKE A PHARMACY REQUEST FOR ANTIBIOTIC TREATMENT GUIDANCE. PHARMACY CALLED. TALKED WITH GUILLERMO JAMES. CONTINUE POT.
[2019-02-21 04:39] LABS: BASOPHILS ABSOLUTE AUTO 0.01 K/mm3 (0.00-0.23); BASOPHILS PERCENT AUTO 0 % (0-2); EOSINOPHILS ABSOLUTE AUTO 0.13 K/mm3 (0.00-0.68); EOSINOPHILS PERCENT AUTO 5 % (0-6); Hematocrit 31.7 % (33.0-51.0); Hemoglobin 9.9 g/dL (11.5-16.0); IMMATURE GRAN ABSOLUTE AUTO 0.01 K/mm3 (0.00-0.10); IMMATURE GRAN PERCENT AUTO 0 % (0-1); LYMPHOCYTES ABSOLUTE AUTO 0.78 K/mm3 (0.84-5.20); LYMPHOCYTES PERCENT AUTO 28 % (21-46); MONOCYTES ABSOLUTE AUTO 0.35 K/mm3 (0.16-1.47); MONOCYTES PERCENT AUTO 13 % (4-13); Mean Corpuscular HGB 30.7 pg (26.0-34.0); Mean Corpuscular HGB Conc 31.2 g/dL (31.5-36.5); Mean Corpuscular Volume 98 fL (80-100); Mean Platelet Volume 12.2 fL (9.1-12.4); NEUTROPHILS ABSOLUTE AUTO 1.48 K/mm3 (1.96-9.15); NEUTROPHILS PERCENT AUTO 54 % (41-73); Platelet Count 81 K/mm3 (150-400); RDW Coefficient Variation 17.4 % (11.7-14.2); RDW Standard Deviation 63.4 fL (35.1-46.3); Red Blood Cell Count 3.23 M/mm3 (3.80-5.20); White Blood Cell Count 2.76 K/mm3 (4.00-11.30)
[2019-02-21 04:52] LABS: Albumin, Blood 2.7 g/dL (3.4-5.0); Anion Gap 8 mmol/L (6-16); Blood Urea Nitrogen 22 mg/dL (8-24); CO2, Blood 30 mmol/L (21-32); Calcium, Blood 8.8 mg/dL (8.5-10.1); Chloride, Blood 96 mmol/L (98-108); Glomerular Filtration Rate 10 (60-); Glucose, Blood 110 mg/dL (70-99); Magnesium, Blood 2.1 mg/dL (1.6-2.4); Phosphorus, Blood 3.5 mg/dL (2.5-4.9); Potassium, Blood 3.6 mmol/L (3.5-5.5); Sodium, Blood 134 mmol/L (136-145)
--- NOTE | 2019-02-21 06:05 | NUR ---
SHIFT SUMMARY PT HAS REMAINED AOX4 THROUGHOUT SHIFT. PLEASANT AND COOPERATIVE WITH CARE. PT CONTINUES TO BE HYPOTENSIVE, WHICH IS BASELINE. HOME MED, NORTHERA, GIVEN ONCE FOR HYPOTENSION. PT MEDICATED MULTIPLE TIMES FOR PAIN THAT DECREASES WITH ORDERED MEDICATION. PT REMAINS INDEPENDENT IN ROOM AND UP IN HALLWAY. PT REPORTS THAT SHE HAS SPOKEN WITH DR URIBE THIS AM VIA TELEPHONE AND DIALYSIS MAY BE DONE TODAY PRIOR TO POTENTIAL PROCEDURE WITH DR ISRAEL. NO OTHER CHANGES NOTED FROM INITIAL ASSESSMENT. WILL CONTINUE TO MONITOR AND REPORT TO ONCOMING SHIFT RN. BED IN LOW POSITION, CALL LIGHT IN REACH.
[2019-02-21 09:36] LABS: Albumin, Blood 2.6 g/dL (3.4-5.0); Albumin/Globulin Ratio 0.7 (0.8-1.8); Bilirubin, Total 0.7 mg/dL (0.1-1.0); Bun/Creatinine Ratio 3.8 (12.0-20.0); Calcium, Blood 9.1 mg/dL (8.5-10.1); Creatinine, Blood 3.92 mg/dL (0.40-1.00); Globulin, Blood 3.9 g/dL (2.2-4.0); Potassium, Blood 3.2 mmol/L (3.5-5.5); Total Protein, Blood 6.5 g/dL (6.4-8.2)
--- NOTE | 2019-02-21 14:55 | NUR ---
sUNSHINE THERAPY PT AWAKENED FROM [facility] AFTER DIALYSIS. SHE WAS VERY GRUMPY AND FRUSTRATED ABOUT THE DELAY IN GETTING TO OCCUPATIONAL MEDICINE PHYSICIAN FOR DR ISRAEL. OFFERED TO TAKE HER OUTSIDE FOR SOME SUN THERAPY. SHE AGREED AFTER SEEING DR AQUINO. PALATIVE CARE FOUND US SITTING OUTSIDE ENJOYING THE DAY AND VISITING WITH PEOPLE THE PT USED TO WORK WITH. CONTINUE POT.
--- NOTE | 2019-02-21 15:31 | NUR ---
Initial palliative care consult: Gus is a 28 year old year old lady who has been on dialysis for 28 years. She has had multiple MRSA bacteremia infections requiring her HD catheter to be removed and replaced. Dr. Llamas and Dr. Anguiano are working to manage her infection and HD access. She is scheduled to have her HD catheter to be removed and a temporary access placed sometime this afternoon. Met with her while she was outside sitting in the sunshine. She has been in the hospital for several days and is frustrated that the HD catheter removal has been delayed. She reports stress last week from having her car reposesed because she hasn't been able to make the payments due to her not being able to work from her illness. She is currently denying any symptoms at this time. She had HD this morning and tolerated it without difficulty. She reports she has a new doctor at [facility] who will involved in her case. She reports difficulty with her [place] doctor and has chosen not to continue care with him. She is hopeful to talk with Dr. Anguiano this afternoon re: options for permanent HD cath site placement. Most of this visit was therapeutic. This typewriter operator automatic allowed her to vent her frustrations and talk about her life outside of the hospital and intentionally not focusing on her ESRD. Pt is independent in her ADLs. She lives with a room mate, room mate's s.o. and her room mates two small children. She reports her living situation isn't ideal, but at this time it is where she can afford to be. She has a sister in [place] who is supportive of her. PC will continue to follow for symptom management and therapeutic visits.
--- NOTE | 2019-02-21 18:09 | NUR ---
TRANSFER PT TRASNFERED VIA BED TO VASCULAR LAB FOR PERMACATH REMOVEL BY DR ISRAEL. CONTINUE POT.
[2019-02-22 04:47] LABS: BASOPHILS ABSOLUTE AUTO 0.01 K/mm3 (0.00-0.23); BASOPHILS PERCENT AUTO 0 % (0-2); EOSINOPHILS ABSOLUTE AUTO 0.19 K/mm3 (0.00-0.68); EOSINOPHILS PERCENT AUTO 7 % (0-6); Hematocrit 34.6 % (33.0-51.0); Hemoglobin 10.6 g/dL (11.5-16.0); IMMATURE GRAN ABSOLUTE AUTO 0.01 K/mm3 (0.00-0.10); IMMATURE GRAN PERCENT AUTO 0 % (0-1); LYMPHOCYTES ABSOLUTE AUTO 0.93 K/mm3 (0.84-5.20); LYMPHOCYTES PERCENT AUTO 32 % (21-46); MONOCYTES ABSOLUTE AUTO 0.28 K/mm3 (0.16-1.47); MONOCYTES PERCENT AUTO 10 % (4-13); Mean Corpuscular HGB 30.5 pg (26.0-34.0); Mean Corpuscular HGB Conc 30.6 g/dL (31.5-36.5); Mean Corpuscular Volume 99 fL (80-100); Mean Platelet Volume 12.5 fL (9.1-12.4); NEUTROPHILS ABSOLUTE AUTO 1.49 K/mm3 (1.96-9.15); NEUTROPHILS PERCENT AUTO 51 % (41-73); Platelet Count 122 K/mm3 (150-400); RDW Coefficient Variation 17.5 % (11.7-14.2); RDW Standard Deviation 63.8 fL (35.1-46.3); Red Blood Cell Count 3.48 M/mm3 (3.80-5.20); White Blood Cell Count 2.91 K/mm3 (4.00-11.30)
[2019-02-22 05:09] LABS: Albumin, Blood 2.9 g/dL (3.4-5.0); Albumin/Globulin Ratio 0.7 (0.8-1.8); Bilirubin, Total 0.9 mg/dL (0.1-1.0); Bun/Creatinine Ratio 4.3 (12.0-20.0); Calcium, Blood 9.2 mg/dL (8.5-10.1); Creatinine, Blood 4.22 mg/dL (0.40-1.00); Globulin, Blood 4.4 g/dL (2.2-4.0); Potassium, Blood 3.6 mmol/L (3.5-5.5); Total Protein, Blood 7.3 g/dL (6.4-8.2)
--- NOTE | 2019-02-22 05:48 | NUR ---
SHIFT SUMMARY PT HAS REMAINED AOX4 THROUGHOUT SHIFT. VSS. PLEASANT AND COOPERATIVE WITH CARE. PT CONTINUES TO AMBULATE INDEPENDENTLY IN ROOM AND HALLWAYS WITHOUT DIFFICULTY. PERMACATH REMOVAL SITE TO L UPPER CHEST WALL IS SOFT WITH NO SIGNS OF BLEEDING OR BRUISING AROUND PAPER TAPE BANDAGE. PT DENIES PAIN TO SITE AFTER REMOVAL THIS AFTERNOON. PT MEDICATED MULTIPLE TIMES FOR PAIN IN UPPER BACK THAT DECREASES WITH ORDERED MEDICATIONS. NEW POWERGLIDE PLACED TO R UPPER ARM THIS AM FLOWS AND DRAWS WELL. NO OTHER CHANGES FROM INITIAL ASSESSMENT. WILL CONTINUE TO MONITOR AND REPORT TO ONCOMING RN. BED IN LOW POSITION, CALL LIGHT IN REACH.
--- NOTE | 2019-02-22 11:43 | NUR ---
Notified by java [email or web address] technical lead that Ct scan shows stents in the left subclavian, most likely from prior fistula that the pt had in that left extremity. Medical records were requested from [facility] for report of operation of initial fistula placement, as well as from [facility] for report of removal of the left arm fistula. MRI cannot be done until more information is obtained. 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
--- NOTE | 2019-02-22 12:21 | NUR ---
Patient is sitting up in bed and alert. Patient allows for ease for therapeutic alliance to be established. Patient openly shares about her medical history, spiritual journey and her family unit complications. Patient is an absolute inspiration of hope and strength. Patient is has a depth and wisdom way beyond her years. I listened empathically, facilitated a life review, reinforced helpful attitudes and practices and provided prayer. Patient stated that the visit was very encouraging to her and she showed signs of restored amanda.
--- NOTE | 2019-02-22 14:59 | NUR ---
Spoke with Willard Olson regarding parameters for Aranesp administration. He spoke with pharmacist in charge of policy and parameters, states to go ahead and give it today.
--- NOTE | 2019-02-22 17:06 | NUR ---
Blood pressure noted less than 90 systolic; Northera was given for hypotension. The pt denies any symptoms of hypotension, but is c/o pain 8/10 in her back, for which she was given IV dilaudid, per PRN orders. The cloth dot on her left upper chest was noted to be damp (possibly from sweat, possibly from a shower today, although it was covered by the PCT prior to shower to avoid this) and also starting to become unattatched. Old cloth dot was removed, and the are cleansed gently with cholorohexidine sterile swab. No drainage was noted, but the insertion site does show redness, about 5 mm around the area. Sterile cloth dot was applied to the site. Pt tolerated this well.
--- NOTE | 2019-02-23 04:38 | NUR ---
ASSUMED CARE APPROXIMATELY 1900 FROM JORGE LAUGHLIN; PT IS ALERT AND COOPERATIVE W/ CARE; DRESSING ON LCW CLEAN AND DRY; IV DILAUDID ADMINISTERED REGULARLY PER ORDERS FOR PAIN IN BACK; PT IS INDEPENDENT IN ROOM AND CALLS APPROPRIATELY; POWERGLIDE IN R UPPER ARM FLUSHING APPROPRIATELY; NSR W/ HR IN 70'S; PT ON RA O2 SATS >90% BED IN LOWEST POSITION; CALL LIGHT WITHIN REACH; WILL CONTINUE TO MONITOR AND ASSESS UNTIL HANDOFF TO DAY SHIFT RN.
[2019-02-23 05:01] LABS: BASOPHILS ABSOLUTE AUTO 0.01 K/mm3 (0.00-0.23); BASOPHILS PERCENT AUTO 0 % (0-2); EOSINOPHILS ABSOLUTE AUTO 0.18 K/mm3 (0.00-0.68); EOSINOPHILS PERCENT AUTO 5 % (0-6); Hematocrit 31.2 % (33.0-51.0); Hemoglobin 9.5 g/dL (11.5-16.0); IMMATURE GRAN ABSOLUTE AUTO 0.02 K/mm3 (0.00-0.10); IMMATURE GRAN PERCENT AUTO 1 % (0-1); LYMPHOCYTES ABSOLUTE AUTO 1.13 K/mm3 (0.84-5.20); LYMPHOCYTES PERCENT AUTO 32 % (21-46); MONOCYTES ABSOLUTE AUTO 0.33 K/mm3 (0.16-1.47); MONOCYTES PERCENT AUTO 9 % (4-13); Mean Corpuscular HGB 29.9 pg (26.0-34.0); Mean Corpuscular HGB Conc 30.4 g/dL (31.5-36.5); Mean Corpuscular Volume 98 fL (80-100); Mean Platelet Volume 12.1 fL (9.1-12.4); NEUTROPHILS ABSOLUTE AUTO 1.87 K/mm3 (1.96-9.15); NEUTROPHILS PERCENT AUTO 53 % (41-73); Platelet Count 128 K/mm3 (150-400); RDW Coefficient Variation 17.2 % (11.7-14.2); RDW Standard Deviation 61.7 fL (35.1-46.3); Red Blood Cell Count 3.18 M/mm3 (3.80-5.20); White Blood Cell Count 3.54 K/mm3 (4.00-11.30)
[2019-02-23 05:23] LABS: Alanine Aminotransfer (ALT/SGP 99 U/L (12-78); Albumin, Blood 2.6 g/dL (3.4-5.0); Albumin/Globulin Ratio 0.6 (0.8-1.8); Alk Phos 729 U/L (50-136); Anion Gap 9 mmol/L (6-16); Aspartate Aminotrans (AST/SGOT 87 U/L (12-37); Bilirubin, Total 0.8 mg/dL (0.1-1.0); Blood Urea Nitrogen 24 mg/dL (8-24); Bun/Creatinine Ratio 3.9 (12.0-20.0); CO2, Blood 29 mmol/L (21-32); Calcium, Blood 9.5 mg/dL (8.5-10.1); Chloride, Blood 100 mmol/L (98-108); Creatinine, Blood 6.15 mg/dL (0.40-1.00); Glomerular Filtration Rate 9 (60-); Glucose, Blood 109 mg/dL (70-99); Magnesium, Blood 2.2 mg/dL (1.6-2.4); Phosphorus, Blood 4.3 mg/dL (2.5-4.9); Potassium, Blood 3.5 mmol/L (3.5-5.5); Sodium, Blood 138 mmol/L (136-145); Total Protein, Blood 6.6 g/dL (6.4-8.2)
--- NOTE | 2019-02-23 08:38 | NUR ---
NURSING PCU DAYSHIFT: Assumed care of pt at approx 0700. A/O, very pleasant and cooperative w/care. C/O 8/10 low/mid back pain which worsens w/movement treating w/meds as ordered. Ambulates independently and w/o difficulty. Skin is intact w/small cloth dot dressing noted to LCW from recent permacath removal. Tele in place, NSR, no c/o CP/pressure, SBP 79 prior to a.m. meds, no noted edema. L/S cta t/o, O2 sat upper 90's on RA, no noted cough, denies dyspnea. Abd SNT, BT+, minimal appetite this a.m., no noted u/o d/t hx of CKD. PG present in RUE, s/l, flushes well. Pt denies any current needs or questions regarding plan of care. Midodrine administered for hypotension. Seen by PMD, awaiting new d/o. Plan to f/u regarding records needed from [facility]. Call light remains in reach, cont to monitor for any changes.
[2019-02-23 10:08] LABS: HEPARIN INDUCED PLATELET AB 0.153 OD (0.000-0.400)
--- NOTE | 2019-02-23 16:19 | NUR ---
Spiritual care visit conducted. Patient stopped me in the hallway mid-morning and asked if I could visit. I visited patient and she said that she would be interested in inspirational music. I played two songs that I wrote and told the back stories to them. Patient got tearful and said that the lyrics spoke to her. I also heard more of patient's story and highlighted the strength and courage she displays everyday as she pushes past the all the limitations and obstacles. I provided emotional support and prayer to finish up our visit. Patient voiced appreciation for the time and care. I will continue to remain available to patient.
--- NOTE | 2019-02-23 17:19 | NUR ---
[facility] PCU DAYSHIFT SUMMARY: No significant changes noted t/o the shift. Pt ambulates halls independently and w/o difficulty. Hypotension improved after administration of Midodrine. Seen by cissp, plan for temporary HD port placement this evening. Pt xferred to HC accompanied by HC RN x2, no s/s of acute distress at that time. Awaiting return post procedure until rpt is provided to NOC RN.
[2019-02-24 05:22] LABS: BASOPHILS ABSOLUTE AUTO 0.01 K/mm3 (0.00-0.23); BASOPHILS PERCENT AUTO 0 % (0-2); EOSINOPHILS ABSOLUTE AUTO 0.23 K/mm3 (0.00-0.68); EOSINOPHILS PERCENT AUTO 6 % (0-6); Hematocrit 30.4 % (33.0-51.0); Hemoglobin 9.5 g/dL (11.5-16.0); IMMATURE GRAN ABSOLUTE AUTO 0.04 K/mm3 (0.00-0.10); IMMATURE GRAN PERCENT AUTO 1 % (0-1); LYMPHOCYTES ABSOLUTE AUTO 1.03 K/mm3 (0.84-5.20); LYMPHOCYTES PERCENT AUTO 25 % (21-46); MONOCYTES ABSOLUTE AUTO 0.42 K/mm3 (0.16-1.47); MONOCYTES PERCENT AUTO 10 % (4-13); Mean Corpuscular HGB Conc 31.3 g/dL (31.5-36.5); Mean Corpuscular Volume 99 fL (80-100); Mean Platelet Volume 11.8 fL (9.1-12.4); NEUTROPHILS ABSOLUTE AUTO 2.47 K/mm3 (1.96-9.15); NEUTROPHILS PERCENT AUTO 59 % (41-73); Platelet Count 165 K/mm3 (150-400); RDW Coefficient Variation 17.2 % (11.7-14.2); RDW Standard Deviation 63.5 fL (35.1-46.3); Red Blood Cell Count 3.06 M/mm3 (3.80-5.20)
[2019-02-24 05:46] LABS: Alanine Aminotransfer (ALT/SGP 107 U/L (12-78); Albumin, Blood 2.6 g/dL (3.4-5.0); Albumin/Globulin Ratio 0.7 (0.8-1.8); Alk Phos 725 U/L (50-136); Anion Gap 10 mmol/L (6-16); Aspartate Aminotrans (AST/SGOT 86 U/L (12-37); Bilirubin, Total 0.7 mg/dL (0.1-1.0); Blood Urea Nitrogen 33 mg/dL (8-24); Bun/Creatinine Ratio 4.1 (12.0-20.0); CO2, Blood 29 mmol/L (21-32); Calcium, Blood 10.5 mg/dL (8.5-10.1); Chloride, Blood 102 mmol/L (98-108); Creatinine, Blood 7.98 mg/dL (0.40-1.00); Globulin, Blood 3.9 g/dL (2.2-4.0); Glomerular Filtration Rate 6 (60-); Glucose, Blood 110 mg/dL (70-99); Magnesium, Blood 2.4 mg/dL (1.6-2.4); Potassium, Blood 3.7 mmol/L (3.5-5.5); Sodium, Blood 141 mmol/L (136-145); Total Protein, Blood 6.5 g/dL (6.4-8.2)
--- NOTE | 2019-02-24 07:41 | NUR ---
SHIFT SUMMARY PATIENT PLEASENT AND COOPERATIVE THROUGHOUT THE NIGHT. PATIENT UP AND WALKING AROUND FREQUENTLY WHEN AWAKE. PATIENT APPEARED TO SLEEP WELL THROUGHOUT THE NIGHT LAST NIGHT. PATIENT PROVIDED PAIN MEDICATION PER EMAR. VITAL SIGNS CHARTED. PATIENT CURRENTLY APPEARS TO BE ASLEEP. REPORT GIVEN TO ONCOMING RN.
--- NOTE | 2019-02-24 09:21 | NUR ---
NURSING PCU DAYSHIFT: Assumed care of pt at approx 0700. A/O, pleasant, cooperative w/care. C/O 8/10 back pain, treating w/meds as ordered. Ambulates independently and w/o difficulty. Skin is intact w/no breakdown noted. Tele in place, NSR, no c/o CP/pressure, BP stable, no noted edema. L/S cta t/o, O2 sat stable on RA, denies dyspnea, no noted cough. Abd SNT, BT+, does not void d/t hx of CKD. PG present in RUE, s/l, temporary HD cath in LEJ w/dressing intact. Pt denies any questions/needs at this time. Seen by PMD, awaiting new d/o. Records from [facility] received, provided to field technical assistant, MRI to be scheduled today. Call light remains in reach, cont to monitor for any changes.
--- NOTE | 2019-02-24 16:56 | NUR ---
NURSING PCU DAYSHIFT SUMMARY: No significant changes noted t/o the shift. HD completed using HD port. Pt tolerated well though experience hypotension during dialysis, improved after PRN medication administration. Pt sitting up in bed at this time. Denies any current needs or questions regarding plan of care. Continued attempts have been made to obtain records regarding stent placed in LUE/L shoulder during 2015 so that MRI can be completed. No s/s of acute distress at this time. Pt appears to be resting comfortably. Cont to monitor until rpt is givent to EDELMIRA RN.
--- NOTE | 2019-02-25 07:44 | NUR ---
AM NOTE. ASSUMED CARE OF PT APROX 0700, PT IS A&Ox4 AND IND IN THE ROOM. PT WAS ADMITTED FOR MRSA INFECTION OF HER DIALYSIS PERMA CATH. CATH WAS REMOVED AND TEMP CATH WAS PALCED. WE ARE CURRENTLY AWAITING RECORDS FROM ANOTHER HOSPTIAL TO PROCEED WITH MRI THE PT NEEDS TO CONTINUE HER CARE. TELE INTACT NSR IN THE 80'S PER PAEDIATRIC THORACIC PHYSICIAN. PT'S BP 105/71. NO EDEMA NOTED ON ASSESSMENT. L/S CLEAR T/O DIM IN THE BASES. BT PRESENT AND NORMOACTIVE, ABD IS SOFT AND NONTENDER TO PALP. CALL LIGHT IN REACH, BED IS LOCKED AND LOW WILL CONTINUE TO MONITOR.
--- NOTE | 2019-02-25 07:44 | NUR ---
SHIFT SUMMARY PATIENT PLEASENT AND COOPERATIVE THROUGHOUT THE NIGHT. PATIENT APPEARED TO SLEEP WELL LAST NIGHT. PATIENT PROVIDED PAIN MEDICATIONS PER EMAR. ANOTHER ATTEMPT TO OBTAIN PATIENT'S MEDICAL RECORDS WAS ATTEMPTED BY [employer] UPHOLSTERER ABDON LAST NIGHT, BUT HE STATED HE WAS INFORMED THAT THEIR MEDICAL RECORDS OFFICE WAS CLOSED FOR THE NIGHT AND THEY WOULD BE UNABLE TO LOOK FOR PATIENTS RECORDS UNTIL APPROX 0800 THE NEXT DAY. VITAL SIGNS CHARTED. REPORT GIVEN TO ONCOMING RN.
--- NOTE | 2019-02-25 16:14 | NUR ---
Spirirutal care visit conducted. Patient is resting but easily awakens to her. Patient openly shares about some of the deeper struggles and greater triumphs in her life. I listen empathically. I provide emotional support, companionship and prayer. Patient responds well and voices appreciation for the visit.
--- NOTE | 2019-02-25 17:22 | NUR ---
SHIFT SUMMARY. NO ACUTE CHANGES NOTED THIS SHIFT. PT'S VS HAVE BEEN STABLE. PT DENIES ANY CHEST PAIN/PRESSURE, N/V OR SOB. PT HAS BEEN IND IN HER ROOM ALL SHIFT. PT WAS TAKEN FOR MRI TODAY TO HELP DIAGNOSE HER NECK/BACK PAIN, RESULTS ARE PENDING. PT HAS BEEN MEDICATED FOR PAIN PER EMAR WITH GOOD RESULTS. CALL LIGHT IN REACH, BED IS LOCKED AND LOW WILL CONTINUE TO MONITOR UNTIL REPORT IS GIVEN TO ONCOMING RN.
[2019-02-26 04:31] LABS: BASOPHILS ABSOLUTE AUTO 0.01 K/mm3 (0.00-0.23); BASOPHILS PERCENT AUTO 0 % (0-2); EOSINOPHILS ABSOLUTE AUTO 0.25 K/mm3 (0.00-0.68); EOSINOPHILS PERCENT AUTO 5 % (0-6); Hematocrit 32.5 % (33.0-51.0); Hemoglobin 9.9 g/dL (11.5-16.0); IMMATURE GRAN ABSOLUTE AUTO 0.08 K/mm3 (0.00-0.10); IMMATURE GRAN PERCENT AUTO 2 % (0-1); LYMPHOCYTES ABSOLUTE AUTO 1.63 K/mm3 (0.84-5.20); LYMPHOCYTES PERCENT AUTO 31 % (21-46); MONOCYTES ABSOLUTE AUTO 0.62 K/mm3 (0.16-1.47); MONOCYTES PERCENT AUTO 12 % (4-13); Mean Corpuscular HGB 30.6 pg (26.0-34.0); Mean Corpuscular HGB Conc 30.5 g/dL (31.5-36.5); Mean Corpuscular Volume 100 fL (80-100); NEUTROPHILS ABSOLUTE AUTO 2.66 K/mm3 (1.96-9.15); NEUTROPHILS PERCENT AUTO 51 % (41-73); Platelet Count 271 K/mm3 (150-400); RDW Coefficient Variation 17.2 % (11.7-14.2); RDW Standard Deviation 63.8 fL (35.1-46.3); Red Blood Cell Count 3.24 M/mm3 (3.80-5.20); White Blood Cell Count 5.25 K/mm3 (4.00-11.30)
[2019-02-26 05:00] LABS: Albumin/Globulin Ratio 0.7 (0.8-1.8); Bilirubin, Total 0.5 mg/dL (0.1-1.0); Bun/Creatinine Ratio 4.3 (12.0-20.0); Creatinine, Blood 9.59 mg/dL (0.40-1.00); Globulin, Blood 4.2 g/dL (2.2-4.0); Potassium, Blood 3.7 mmol/L (3.5-5.5); Total Protein, Blood 7.2 g/dL (6.4-8.2)
[2019-02-26 05:59] LABS: Calcium, Blood 13.8 mg/dL (8.5-10.1)
--- NOTE | 2019-02-26 06:22 | NUR ---
SHIFT SUMMARY PT A&0 X4, INDEPENDENT IN ROOM. SLEEPING MAJORITY OF SHIFT. LUNG SOUNDS CLEAR. SPO2 > 92% ON RA. MONITOR SHOWS NSR. PT C/O 8/10 BACK PAIN, TX'D PER EMAR W/ TEMPORARY PAIN REDUCTION TO 2/10 W/ RETURN OF PAIN, CONTINUALLY TREATING T/O SHIFT. PT STATES HAVING REFUSED DIALYSIS 02/25/19, STATES READINESS TO DO DIALYSIS 02/26/19. CRITICALLY HIGH CALCIUM OF 13.8 CALLED TO MD LOW THIS AM W/ INSTRUCTIONS TO NOTIFY MD URIBE WHEN MD URIBE ROUNDS ON PT THIS AM. PT IN ROOM W/ NO CHANGES. VSS. WILL CONTINUE TO MONITOR AND PROVIDE CARE UNTIL REPORT OFF TO DAY SHIFT RN.
--- NOTE | 2019-02-26 11:15 | NUR ---
AM NOTE. ASSUMED CARE OF PT APROX 0700, PT IS A&Ox4 AND IND IN THE ROOM. PT'S VS HAVE BEEN STABLE. MRI WAS DONE WAITING ON RESULTS. PT IS HAVING DIALYSIS TODAY. TELE INTACT, NSR IN THE 90'S. PT'S BP 98/71. NO EDEMA NOTED ON ASSESSMENT. L/S CLEAR, PT IS ON RA. BT PRESENT AND HYPERACTIVE, ABD IS SOFT AND NONTENDER TO PALP. CALL LIGHT IN REACH, BED IS LOCKED AND LOW WILL CONTINUE TO MONITOR.
--- NOTE | 2019-02-26 18:42 | NUR ---
SHIFT SUMMARY. NO ACUTE CHANGES NOTED THIS SHIFT, PT HAD HYPOTENSIVE EPISODE DURING DIALYSIS AND APROX 4 HOURS AFTER, PT WAS NOT SYMPTOMAIC DURING THIS TIME. PT WAS GIVEN MEDICATIONS PER EMAR, THIS BROUGHT HER BP UP TO PT'S STATED "NORMAL RANGE." PT HAS LEFT HER ROOM TO TAKE WALKS SEVERAL TIMES THIS SHIFT. CALL LIGHT IN REACH, BED IS LOCKED AND LOW WILL CONTINUE TO MONITOR UNTIL REPORT IS GIVEN TO ONCOMING RN.
[2019-02-27 04:24] LABS: Hematocrit 35.1 % (33.0-51.0); Hemoglobin 10.6 g/dL (11.5-16.0)
[2019-02-27 04:47] LABS: Magnesium, Blood 2.5 mg/dL (1.6-2.4)
--- NOTE | 2019-02-27 04:52 | NUR ---
SHIFT SUMMARY PT A&0 X4, INDEPENDENT IN ROOM. PT HYPOTENSIVE THIS SHIFT, ASYMPTOMATIC, TX'D PER EMAR, OTHERWISE VSS. PT C/O 04/30 BACK PAIN, MEDICATING PER EMAR/PT REQUEST. PT SLEEPING AT THIS TIME. WILL CONTINUE TO MONITOR AND PROVIDE CARE UNTIL REPORT OFF TO DAY SHIFT RN.
[2019-02-27 04:53] LABS: Albumin, Blood 3.1 g/dL (3.4-5.0); Anion Gap 9 mmol/L (6-16); Blood Urea Nitrogen 39 mg/dL (8-24); Bun/Creatinine Ratio 4.3 (12.0-20.0); CO2, Blood 29 mmol/L (21-32); Chloride, Blood 99 mmol/L (98-108); Creatinine, Blood 9.05 mg/dL (0.40-1.00); Glomerular Filtration Rate 6 (60-); Glucose, Blood 135 mg/dL (70-99); Phosphorus, Blood 6.3 mg/dL (2.5-4.9); Potassium, Blood 4.1 mmol/L (3.5-5.5); Sodium, Blood 137 mmol/L (136-145)
[2019-02-27 05:07] LABS: Calcium, Blood 11.7 mg/dL (8.5-10.1)
--- NOTE | 2019-02-27 10:20 | NUR ---
AM NOTE. ASSUMED CARE OF PT APROX 0700, PT IS A&Ox4 AND IND IN THE ROOM. PT IS WAITING FOR PERMA CATH PLACEMENT IN ORDER TO D/C HOME. TELE INTACT, NSR IN THE 90'S PER MONITOR, PT'S BP 80/59. NO EDEMA NOTED ON ASSESSMENT. L/S CLEAR T/O. BT PRESENT AND NORMOACTIVE, ABD IS SOFT AND NONTENDER TO PALP. PT IS SCHEDULED FOR DIALYSIS THIS AM. CALL LIGHT IN REACH, BED IS LOCKED AND LOW WILL CONTINUE TO MONITOR.
--- NOTE | 2019-02-27 19:29 | NUR ---
SHIFT SUMMARY. NO ACUTE CHANGES NOTED THIS SHIFT. PT HAD DIALYSIS THIS AM, PT HAS BEEN HYPOTENSIVE T/O SHIFT BUT NOT SYMPTOMATIC. PT'S PAIN MEDICATIONS WERE CHANGED FROM IV DILAUDID Q3 HRS TO TRAMADOL 50MG BID. SINCE THIS AM PT HAS NOT REQUESTED ANY PAIN MEDICATION EVERY 3 HOURS LIKE PRIOR. PT HAS BEEN IND IN THE ROOM AND TAKING WALKS LIKE NORMAL. CALL LIGHT IN REACH, BED IS LOCKED AND LOW WILL CONTINUE TO MONITOR UNTIL REPORT IS GIVEN TO ONCOMING RN.
--- NOTE | 2019-02-27 21:30 | NUR ---
CARE ASSUMPTION PT BACK IN ROOM AT THIS TIME. A&O X4. VSS. WILL CONTINUE TO MONITOR AND PROVIDE CARE.
[2019-02-28 04:39] LABS: BASOPHILS ABSOLUTE AUTO 0.03 K/mm3 (0.00-0.23); BASOPHILS PERCENT AUTO 0 % (0-2); EOSINOPHILS ABSOLUTE AUTO 0.17 K/mm3 (0.00-0.68); EOSINOPHILS PERCENT AUTO 2 % (0-6); Hematocrit 34.9 % (33.0-51.0); Hemoglobin 10.6 g/dL (11.5-16.0); IMMATURE GRAN ABSOLUTE AUTO 0.11 K/mm3 (0.00-0.10); IMMATURE GRAN PERCENT AUTO 1 % (0-1); LYMPHOCYTES ABSOLUTE AUTO 2.18 K/mm3 (0.84-5.20); LYMPHOCYTES PERCENT AUTO 23 % (21-46); MONOCYTES ABSOLUTE AUTO 1.11 K/mm3 (0.16-1.47); MONOCYTES PERCENT AUTO 12 % (4-13); Mean Corpuscular HGB 30.9 pg (26.0-34.0); Mean Corpuscular HGB Conc 30.4 g/dL (31.5-36.5); Mean Corpuscular Volume 102 fL (80-100); Mean Platelet Volume 10.8 fL (9.1-12.4); NEUTROPHILS ABSOLUTE AUTO 5.98 K/mm3 (1.96-9.15); NEUTROPHILS PERCENT AUTO 62 % (41-73); Platelet Count 380 K/mm3 (150-400); RDW Coefficient Variation 17.7 % (11.7-14.2); RDW Standard Deviation 66.3 fL (35.1-46.3); Red Blood Cell Count 3.43 M/mm3 (3.80-5.20); White Blood Cell Count 9.58 K/mm3 (4.00-11.30)
[2019-02-28 04:59] LABS: Albumin, Blood 3.1 g/dL (3.4-5.0); Anion Gap 9 mmol/L (6-16); Blood Urea Nitrogen 32 mg/dL (8-24); Bun/Creatinine Ratio 4.2 (12.0-20.0); CO2, Blood 27 mmol/L (21-32); Chloride, Blood 102 mmol/L (98-108); Creatinine, Blood 7.57 mg/dL (0.40-1.00); Glomerular Filtration Rate 7 (60-); Glucose, Blood 121 mg/dL (70-99); Phosphorus, Blood 5.5 mg/dL (2.5-4.9); Sodium, Blood 138 mmol/L (136-145)
--- NOTE | 2019-02-28 06:26 | NUR ---
SHIFT SUMMARY PT A&O X4, INDEPENDENT. PT BP LOW, SEE VS. PT DENIED PRN BP MEDICATION TX STATING "I'M OKAY W/ THAT BLOOD PRESSURE." PT C/O BACK PAIN, REQUESTING PAIN MEDICATION X1 THIS SHIFT. WILL CONTINUE TO MONITOR AND PROVIDE CARE UNTIL REPORT OFF TO DAY SHIFT RN.
--- NOTE | 2019-02-28 18:41 | NUR ---
SHIFT SUMMARY PT ALERT AND ORIENTED. INDEPENDENT IN THE ROOM. VS STABLE. BP HAS BEEN LOW. BUT PT STATES IT IS HER NORMAL. PT COMPLAINED OF PAIN IN HER BACK THIS SHIFT THAT WAS RELEIVED WITH MEDICATION ADMINISTRATION. PLAN TO HAVE PERMACATH PLACED TOMORROW. PT TO BE NPO IN THE AM. WILL CONTINUE TO MONITOR AND REPORT TO ONCOMING RN. CALL LIGHT IN REACH.
--- NOTE | 2019-02-28 19:30 | NUR ---
ASSUMED CARE PT RESTING IN ROOM COMFORTABLY. PER DAY SHIFT NO ACUTE CHANGES IN STATUS. PT TO HAVE DIALYSIS AND NEW PERMACATH PLACED IN AM. RESP EVEN UNLABORED ON RA. DENIES PAIN AT THIS TIME. PT INDEPENDENT IN ROOM. CALL LIGHT IN REACH.
--- NOTE | 2019-03-01 07:19 | NUR ---
SHIFT SUMMARY PT SLEEPING IN ROOM COMFORTABLY. NO ACUTE CHANGES IN STAUS T/O NIGHT. PT DENIED NEEDS. PT WAS NPO AFTER MIDNIGHT. SLEPT WELL T/O NIGHT. PT TO GO TO DIALYSIS TODAY, AND GET NEW PERMACATH PLACED. RESP EVEN UNLABORED ON RA. CALL LIGHT IN REACH. PT INDEPENDENT.
--- NOTE | 2019-03-01 09:00 | NUR ---
ASSUMED CARE PT ALERT AND ORIENTED. VS STABLE. PT DENIES ANY PAIN AT THIS TIME. PT TO HAVE DIALYSIS THIS AM. PT TO ALSO HAVE PERMACATH PLACEMENT THIS AFTERNOON BY DR. ISRAEL. WILL CONTINUE TO MONITOR CLOSELY.
[2019-03-01 09:27] LABS: BASOPHILS ABSOLUTE AUTO 0.04 K/mm3 (0.00-0.23); BASOPHILS PERCENT AUTO 0 % (0-2); EOSINOPHILS PERCENT AUTO 2 % (0-6); Hematocrit 33.5 % (33.0-51.0); Hemoglobin 10.4 g/dL (11.5-16.0); IMMATURE GRAN PERCENT AUTO 1 % (0-1); LYMPHOCYTES ABSOLUTE AUTO 3.15 K/mm3 (0.84-5.20); LYMPHOCYTES PERCENT AUTO 32 % (21-46); MONOCYTES ABSOLUTE AUTO 1.14 K/mm3 (0.16-1.47); MONOCYTES PERCENT AUTO 12 % (4-13); Mean Corpuscular HGB 31.4 pg (26.0-34.0); Mean Corpuscular Volume 101 fL (80-100); Mean Platelet Volume 10.7 fL (9.1-12.4); NEUTROPHILS ABSOLUTE AUTO 5.17 K/mm3 (1.96-9.15); NEUTROPHILS PERCENT AUTO 53 % (41-73); Platelet Count 392 K/mm3 (150-400); RDW Coefficient Variation 17.5 % (11.7-14.2); RDW Standard Deviation 65.6 fL (35.1-46.3); Red Blood Cell Count 3.31 M/mm3 (3.80-5.20)
[2019-03-01 09:51] LABS: Magnesium, Blood 2.6 mg/dL (1.6-2.4)
[2019-03-01 10:04] LABS: Albumin, Blood 3.3 g/dL (3.4-5.0); Anion Gap 12 mmol/L (6-16); Blood Urea Nitrogen 44 mg/dL (8-24); Bun/Creatinine Ratio 4.4 (12.0-20.0); CO2, Blood 26 mmol/L (21-32); Calcium, Blood 10.5 mg/dL (8.5-10.1); Chloride, Blood 99 mmol/L (98-108); Glomerular Filtration Rate 5 (60-); Glucose, Blood 85 mg/dL (70-99); Phosphorus, Blood 6.9 mg/dL (2.5-4.9); Potassium, Blood 4.2 mmol/L (3.5-5.5); Sodium, Blood 137 mmol/L (136-145)
--- NOTE | 2019-03-01 10:15 | NUR ---
ORDERS FOR MEDICAL STATUS. PT IN DIALYSIS AT THIS TIME. REPORT GIVEN TO MEDICAL FLOOR RN.
--- NOTE | 2019-03-01 11:30 | NUR ---
Patient is in dialysis when I visit. She is sleeping but easiy awakens to the sound of her name. Patient is discouraged and stated "they were not able to put my port in before dialysis." Patient said that she really wants to go home and that her discharged is delayed. Patient stated that she is very sleepy and asks if I could visit with her toward the end of the day. I, of course, agree to this request. I will continue to be available to patient.
--- NOTE | 2019-03-01 14:23 | NUR ---
THIS BOX SORTER INCORRECTLY PUT ORDER IN USING WRONG PROVIDER. ORDER WAS FOR MRSA CULTURES. REQUESTED BY NE CHÁVEZ.
--- NOTE | 2019-03-01 15:15 | NUR ---
PATIENTS BP WAS LOW AT 1248 AND ADMINISTERED MIDODRINE AND NORTHERA PER EMAR. 2 HOURS LATER BP DROPPED ADDITIONALLY TO 67/42. RECIEVED PROVIDERS PERMISSION TO ADMINISTER ADDITIONAL DOSE OF NORTHERA.
--- NOTE | 2019-03-01 16:31 | NUR ---
Pre-surgery prayer, emotional support and spiritual direction provided.
[2019-03-01] MEDS ORDERED: DAPTOMYCIN350 MG IV (18:16)
--- NOTE | 2019-03-01 18:26 | NUR ---
SHIFT SUMMARY PT WAS TRANSFERRED FROM PCU THIS AFTERNOON. PATIENT HAD PROCEDURE IN THE COMMERCIAL MANAGEMENT ACCOUNTANT THIS AFTERNOON FOR A NEW PERMACATH PLACEMENT. BLOOD PRESSURE HAS BEEN RUNNING LOW THIS AFTERNOON. LAST BP WAS 89/66. PATIENT IS BEING DISCHARGED APPROX 1900.
== END 2019-03-01 18:59 | disposition home or self-care (01) | DRG 314 ==
LOC: ER 18:28 → PCU 22:02 → ER 02-18 15:54 → PCU 02-18 15:54 → MEDS 03-01 10:05 → PCU 03-01 10:05 → MEDS 03-01 18:59
PROVIDERS: Emergency Medicine; Family Medicine; Internal Medicine; Internal Medicine Nephrology; ADMIT Internal Medicine
PROC: 30233N1 Transfusion of Nonautologous Red Blood Cells into Peripheral Vein, Percutaneous Approach (ICD-10-PCS; principal; 2019-02-18)
PROC: 5A1D70Z Performance of Urinary Filtration, Intermittent, Less than 6 Hours Per Day (ICD-10-PCS; 2019-02-18)
PROC: 5A1D70Z Performance of Urinary Filtration, Intermittent, Less than 6 Hours Per Day (ICD-10-PCS; 2019-02-20)
PROC: 5A1D70Z Performance of Urinary Filtration, Intermittent, Less than 6 Hours Per Day (ICD-10-PCS; 2019-02-23)
PROC: 5A1D70Z Performance of Urinary Filtration, Intermittent, Less than 6 Hours Per Day (ICD-10-PCS; 2019-02-24)
PROC: 5A1D70Z Performance of Urinary Filtration, Intermittent, Less than 6 Hours Per Day (ICD-10-PCS; 2019-02-25)
PROC: 5A1D70Z Performance of Urinary Filtration, Intermittent, Less than 6 Hours Per Day (ICD-10-PCS; 2019-02-27)
PROC: 0J2VXYZ Change Other Device in Upper Extremity Subcutaneous Tissue and Fascia, External Approach (ICD-10-PCS; 2019-03-01)
DX: T82.7XXA Infection and inflammatory reaction due to other cardiac and vascular devices, implants and grafts, initial encounter (principal); A41.02 Sepsis due to Methicillin resistant Staphylococcus aureus; N18.6 End stage renal disease; R65.20 Severe sepsis without septic shock; J96.01 Acute respiratory failure with hypoxia; E87.1 Hypo-osmolality and hyponatremia; N25.81 Secondary hyperparathyroidism of renal origin; D61.818 Other pancytopenia; Z99.2 Dependence on renal dialysis; Z95.2 Presence of prosthetic heart valve; D63.1 Anemia in chronic kidney disease; Z86.711 Personal history of pulmonary embolism; D69.6 Thrombocytopenia, unspecified; F41.9 Anxiety disorder, unspecified; M54.9 Dorsalgia, unspecified; I95.89 Other hypotension; K21.9 Gastro-esophageal reflux disease without esophagitis; E83.52 Hypercalcemia
CPT/HCPCS: 36010; 36415; 36430; 36581; 37248; 71046; 71250; 72146; 76705; 80048; 80053; 80069; 83605; 83735; 83970; 84100; 84132; 85014; 85018; 85025; 85027; 85651; 86022; 86140; 86850; 86900; 86901; 86923; 87040; 87070; 87077; 87081; 87147; 87186; 93306; 96374; 96375; 99152; 99153; 99284; 99284-25; A9270; C1725; C1750; C1751; C1769; G0257; J0878; J0881; J1170; J1200; J1580; J1644; J1650; J1720; J2020; J2250; J2405; J2765; J3010; J7030; J7040; J7050; P9016; Q9967

== ENCOUNTER 2019-03-02 08:20 | Day surgery (SDC) | payer MEDICARE, OTHER ==
[~2019-03-02 08:20] MED LIST changes: +DAPTOMYCIN350 MG IV; +NATPARA50 MCG SC; +OMEPRAZOLE MAGN20 MG PO; +TOPI100 PO
== END 2019-03-02 10:25 | disposition home or self-care (01) ==
LOC: ATC 08:20
DX: A49.02 Methicillin resistant Staphylococcus aureus infection, unspecified site (principal); E11.22 Type 2 diabetes mellitus with diabetic chronic kidney disease; I12.0 Hypertensive chronic kidney disease with stage 5 chronic kidney disease or end stage renal disease; N18.6 End stage renal disease; D63.1 Anemia in chronic kidney disease; K21.9 Gastro-esophageal reflux disease without esophagitis; Z88.1 Allergy status to other antibiotic agents; Z88.8 Allergy status to other drugs, medicaments and biological substances
CPT/HCPCS: 96365; J0878

== ENCOUNTER 2019-03-04 01:55 | Day surgery (SDC) | payer MEDICARE, OTHER | END 2019-03-04 14:33 | disposition home or self-care (01) | LOC: ATC 01:55 | DX: A49.02 Methicillin resistant Staphylococcus aureus infection, unspecified site (principal); E11.22 Type 2 diabetes mellitus with diabetic chronic kidney disease; I12.0 Hypertensive chronic kidney disease with stage 5 chronic kidney disease or end stage renal disease; N18.6 End stage renal disease; D63.1 Anemia in chronic kidney disease; Z99.2 Dependence on renal dialysis | CPT/HCPCS: 96365 ==

== ENCOUNTER 2019-03-06 00:08 | Day surgery (SDC) | payer MEDICARE, OTHER | END 2019-03-06 13:55 | disposition home or self-care (01) | LOC: ATC 00:08 | DX: A49.02 Methicillin resistant Staphylococcus aureus infection, unspecified site (principal); R78.81 Bacteremia; K21.9 Gastro-esophageal reflux disease without esophagitis; I12.0 Hypertensive chronic kidney disease with stage 5 chronic kidney disease or end stage renal disease; E11.22 Type 2 diabetes mellitus with diabetic chronic kidney disease; N18.6 End stage renal disease; Z88.1 Allergy status to other antibiotic agents; Z88.8 Allergy status to other drugs, medicaments and biological substances | CPT/HCPCS: 96365 ==

== ENCOUNTER 2019-03-08 13:34 | Day surgery (SDC) | payer MEDICARE, OTHER | END 2019-03-08 15:15 | disposition home or self-care (01) | LOC: ATC 13:34 | DX: A49.02 Methicillin resistant Staphylococcus aureus infection, unspecified site (principal); R78.81 Bacteremia; I12.0 Hypertensive chronic kidney disease with stage 5 chronic kidney disease or end stage renal disease; E11.22 Type 2 diabetes mellitus with diabetic chronic kidney disease; N18.6 End stage renal disease; D63.1 Anemia in chronic kidney disease; K21.9 Gastro-esophageal reflux disease without esophagitis; Z88.1 Allergy status to other antibiotic agents; Z99.2 Dependence on renal dialysis; Z88.8 Allergy status to other drugs, medicaments and biological substances | CPT/HCPCS: 96365; J0878 ==

== ENCOUNTER 2019-03-10 00:14 | Day surgery (SDC) | payer MEDICARE, OTHER | END 2019-03-10 14:26 | disposition home or self-care (01) | LOC: ATC 00:14 | DX: A49.02 Methicillin resistant Staphylococcus aureus infection, unspecified site (principal); I12.9 Hypertensive chronic kidney disease with stage 1 through stage 4 chronic kidney disease, or unspecified chronic kidney disease; E11.22 Type 2 diabetes mellitus with diabetic chronic kidney disease; N18.6 End stage renal disease; D63.1 Anemia in chronic kidney disease; K21.9 Gastro-esophageal reflux disease without esophagitis; F32.9 Major depressive disorder, single episode, unspecified; Z86.711 Personal history of pulmonary embolism; Z95.2 Presence of prosthetic heart valve; Z99.2 Dependence on renal dialysis; Z79.899 Other long term (current) drug therapy; Z79.01 Long term (current) use of anticoagulants; Z88.1 Allergy status to other antibiotic agents; Z88.8 Allergy status to other drugs, medicaments and biological substances | CPT/HCPCS: 96365; J0878 ==

== ENCOUNTER 2019-03-23 17:04 | Observation (INO) | payer MEDICARE, OTHER ==
--- NOTE | 2019-03-23 18:30 | NUR ---
ARRIVAL TO UNIT PT ARRIVES, TRANSFERS TO BED INDEPENDENTLY. RESTING COMFORTABLY, VSS, DENIES NEEDS BESIDES A SNACK AND PEPSI. PERMACATH SITE GAUZE AND OPSITE CDI.
--- NOTE | 2019-03-23 19:45 | NUR ---
PT SITTING UP IN BED, A/, VSS. LUNGS CLEAR T/O. PERMACATH SITE WNL W/SM AMT SS JENELLE NOTED. PT DENIES PAIN. PT DOES C/O ITCHING, DENIES SOB. IS REQUESTING BENADRYL. CALL PLACED TO DR JHONATAN MD UPDATED, NEW ORDER FOR PO BENADRYL AND FOR DRESSING CHANGE BEFORE D/C TO HOME TONIGHT.
--- NOTE | 2019-03-23 20:22 | NUR ---
DISCHARGE DRESSING CHANGED TO PERMA CATH. PO BENADRYL WAS GIVEN. NO FURTHER QUESTIONS OR CONCERNS AT THIS TIME. PT DISCHARGED HOME. BELONGINGS IN HAND.
== END 2019-03-23 20:25 | disposition home or self-care (01) ==
LOC: SURS 17:04
PROVIDERS: ADMIT Radiology Diagnostic Radiology
DX: I12.0 Hypertensive chronic kidney disease with stage 5 chronic kidney disease or end stage renal disease (principal); E10.22 Type 1 diabetes mellitus with diabetic chronic kidney disease; N18.6 End stage renal disease; D63.1 Anemia in chronic kidney disease; I34.0 Nonrheumatic mitral (valve) insufficiency; E78.00 Pure hypercholesterolemia, unspecified; Z86.711 Personal history of pulmonary embolism; Z88.8 Allergy status to other drugs, medicaments and biological substances; Z88.1 Allergy status to other antibiotic agents; Z91.040 Latex allergy status; Z79.899 Other long term (current) drug therapy; Z79.52 Long term (current) use of systemic steroids
CPT/HCPCS: 36581; 99152; C1725; C1750; C1769; J1200; J1644; J1720; J2250; J3010; J3490; J7040; Q0163; Q9967

== ENCOUNTER 2019-03-25 16:47 | Emergency (ER) | payer MEDICARE, OTHER ==
[~2019-03-25] VITALS: Ht 147.3 cm; Wt 59.8 kg
--- NOTE | 2019-03-25 21:38 | NUR ---
03/25/[id number] Azalea Ordonez PT TRANSPORTED FOR FAST TRACK TO OR VIA [facility]. PT ALERT AND ORIENTED X3. VSS STABLE. PT TRANSFER SELF TO OR TABLE AND BACK TO [facility] POST PRECEDURE. PT REMAINED ALERT AND ORIENTED THROUGH OUT PROCEDURE AND WAS TRASPORTED BACK TO FAST TRACK VIA [facility]. PT AMBULATED TO DISCHARGE AREA AND REPORTED NO DISTRESS WHEN ASKED. PT STABLE. REPORT GIVEN TO PT AND FAST TRACK NURSE. PT WILL FOLLOW UP WITH PRIMARY DOCTOR.
== END 2019-03-25 20:44 | disposition home or self-care (01) ==
LOC: ER 16:47
PROVIDERS: Surgery
PROC: 05WYX3Z Revision of Infusion Device in Upper Vein, External Approach (ICD-10-PCS; principal; 2019-03-25 22:30)
DX: T82.898A Other specified complication of vascular prosthetic devices, implants and grafts, initial encounter (principal); R22.2 Localized swelling, mass and lump, trunk; Z88.1 Allergy status to other antibiotic agents; Z88.8 Allergy status to other drugs, medicaments and biological substances; Z91.041 Radiographic dye allergy status; Z79.899 Other long term (current) drug therapy; I12.9 Hypertensive chronic kidney disease with stage 1 through stage 4 chronic kidney disease, or unspecified chronic kidney disease; N18.6 End stage renal disease; F41.9 Anxiety disorder, unspecified; F32.9 Major depressive disorder, single episode, unspecified
CPT/HCPCS: 71046; 99283; J1644

== ENCOUNTER 2019-03-30 14:11 | Emergency (ER) | payer MEDICARE, OTHER ==
[~2019-03-30] VITALS: Ht 147.3 cm; Wt 59.0 kg
[2019-03-30 16:19] LABS: Albumin, Blood 3.6 g/dL (3.4-5.0); Albumin/Globulin Ratio 0.9 (0.8-1.8); Bilirubin, Total 0.7 mg/dL (0.1-1.0); Bun/Creatinine Ratio 5.9 (12.0-20.0); Calcium, Blood 8.9 mg/dL (8.5-10.1); Creatinine, Blood 11.1 mg/dL (0.40-1.00); Globulin, Blood 3.8 g/dL (2.2-4.0); Potassium, Blood 3.9 mmol/L (3.5-5.5); Total Protein, Blood 7.4 g/dL (6.4-8.2)
[2019-03-30 17:44] LABS: BASOPHILS ABSOLUTE AUTO 0.03 K/mm3 (0.00-0.23); BASOPHILS PERCENT AUTO 1 % (0-2); EOSINOPHILS ABSOLUTE AUTO 0.18 K/mm3 (0.00-0.68); EOSINOPHILS PERCENT AUTO 3 % (0-6); Hematocrit 33.6 % (33.0-51.0); IMMATURE GRAN ABSOLUTE AUTO 0.01 K/mm3 (0.00-0.10); IMMATURE GRAN PERCENT AUTO 0 % (0-1); LYMPHOCYTES ABSOLUTE AUTO 1.66 K/mm3 (0.84-5.20); LYMPHOCYTES PERCENT AUTO 31 % (21-46); MONOCYTES ABSOLUTE AUTO 0.43 K/mm3 (0.16-1.47); MONOCYTES PERCENT AUTO 8 % (4-13); Mean Corpuscular HGB 32.8 pg (26.0-34.0); Mean Corpuscular HGB Conc 29.8 g/dL (31.5-36.5); Mean Corpuscular Volume 110 fL (80-100); Mean Platelet Volume 10.8 fL (9.1-12.4); NEUTROPHILS ABSOLUTE AUTO 3.03 K/mm3 (1.96-9.15); NEUTROPHILS PERCENT AUTO 57 % (41-73); Platelet Count 219 K/mm3 (150-400); RDW Standard Deviation 72.2 fL (35.1-46.3); Red Blood Cell Count 3.05 M/mm3 (3.80-5.20); White Blood Cell Count 5.34 K/mm3 (4.00-11.30)
== END 2019-03-30 16:44 | disposition home or self-care (01) ==
LOC: ER 14:11
PROVIDERS: Physician Assistant
DX: T82.9XXA Unspecified complication of cardiac and vascular prosthetic device, implant and graft, initial encounter (principal); E11.9 Type 2 diabetes mellitus without complications; I10 Essential (primary) hypertension; N19 Unspecified kidney failure; Z99.2 Dependence on renal dialysis; Z88.1 Allergy status to other antibiotic agents; Z88.5 Allergy status to narcotic agent; Z88.8 Allergy status to other drugs, medicaments and biological substances; Z91.041 Radiographic dye allergy status
CPT/HCPCS: 36415; 71046; 80053; 85025; 99284-25

== ENCOUNTER 2019-03-31 06:20 | Day surgery (SDC) | payer MEDICARE, OTHER ==
[~2019-03-31] VITALS: Ht 177.8 cm; Wt 59.0 kg
--- NOTE | 2019-03-31 08:40 | NUR ---
PT EATING CRACKERS AND JUICE AT THIS TIME. NADN. DENIES PAIN OR NEEDS. SITE REMAINS STABLE. PT IV DC'D.CATH INTACT. PRESSURE DSG APPLIED. PT VERBALIZES UNDERSTANDING WRITTEN AND VERBAL ORDERS. PT LEAVING FOR [place] DR VEGA FOR FISTULAGRAM.
== END 2019-03-31 09:00 | disposition home or self-care (01) ==
LOC: MHTC 06:20
DX: I12.0 Hypertensive chronic kidney disease with stage 5 chronic kidney disease or end stage renal disease (principal); E10.22 Type 1 diabetes mellitus with diabetic chronic kidney disease; N18.6 End stage renal disease; D63.1 Anemia in chronic kidney disease; E78.00 Pure hypercholesterolemia, unspecified; G43.909 Migraine, unspecified, not intractable, without status migrainosus; Z86.711 Personal history of pulmonary embolism; Z88.8 Allergy status to other drugs, medicaments and biological substances; Z88.1 Allergy status to other antibiotic agents; Z91.041 Radiographic dye allergy status; Z79.899 Other long term (current) drug therapy; Z79.52 Long term (current) use of systemic steroids
CPT/HCPCS: 36581; 99152; 99153; C1750; C1769; J1200; J1644; J1720; J2250; J3010; J7030; J7040

== ENCOUNTER 2019-04-15 09:32 | Inpatient (IN) | payer MEDICARE, OTHER ==
[~2019-04-15] VITALS: Ht 147.3 cm; Wt 60.9 kg
[2019-04-15 10:04] LABS: BASOPHILS ABSOLUTE AUTO 0.03 K/mm3 (0.00-0.23); BASOPHILS PERCENT AUTO 0 % (0-2); EOSINOPHILS ABSOLUTE AUTO 0.02 K/mm3 (0.00-0.68); EOSINOPHILS PERCENT AUTO 0 % (0-6); Hematocrit 34.3 % (33.0-51.0); Hemoglobin 10.8 g/dL (11.5-16.0); IMMATURE GRAN ABSOLUTE AUTO 0.06 K/mm3 (0.00-0.10); IMMATURE GRAN PERCENT AUTO 1 % (0-1); LYMPHOCYTES ABSOLUTE AUTO 0.84 K/mm3 (0.84-5.20); LYMPHOCYTES PERCENT AUTO 8 % (21-46); MONOCYTES ABSOLUTE AUTO 0.57 K/mm3 (0.16-1.47); MONOCYTES PERCENT AUTO 6 % (4-13); Mean Corpuscular HGB 33.9 pg (26.0-34.0); Mean Corpuscular HGB Conc 31.5 g/dL (31.5-36.5); Mean Corpuscular Volume 108 fL (80-100); Mean Platelet Volume 10.6 fL (9.1-12.4); NEUTROPHILS ABSOLUTE AUTO 8.75 K/mm3 (1.96-9.15); NEUTROPHILS PERCENT AUTO 85 % (41-73); Platelet Count 205 K/mm3 (150-400); RDW Coefficient Variation 18.9 % (11.7-14.2); RDW Standard Deviation 75.5 fL (35.1-46.3); Red Blood Cell Count 3.19 M/mm3 (3.80-5.20); White Blood Cell Count 10.27 K/mm3 (4.00-11.30)
[2019-04-15 10:30] LABS: Troponin I <0.015 ng/mL (0.000-0.040)
[2019-04-15 10:36] LABS: Alanine Aminotransfer (ALT/SGP 32 U/L (12-78); Albumin, Blood 3.4 g/dL (3.4-5.0); Albumin/Globulin Ratio 0.8 (0.8-1.8); Alk Phos 117 U/L (50-136); Anion Gap 18 mmol/L (6-16); Aspartate Aminotrans (AST/SGOT 25 U/L (12-37); Bilirubin, Total 0.6 mg/dL (0.1-1.0); Blood Urea Nitrogen 69 mg/dL (8-24); Bun/Creatinine Ratio 6.2 (12.0-20.0); CO2, Blood 16 mmol/L (21-32); Calcium, Blood 7.7 mg/dL (8.5-10.1); Chloride, Blood 94 mmol/L (98-108); Globulin, Blood 4.3 g/dL (2.2-4.0); Glomerular Filtration Rate 4 (60-); Glucose, Blood 140 mg/dL (70-99); Potassium, Blood 4.4 mmol/L (3.5-5.5); Sodium, Blood 128 mmol/L (136-145); Total Protein, Blood 7.7 g/dL (6.4-8.2)
--- NOTE | 2019-04-15 18:17 | NUR ---
SHIFT SUMMARY ASSUMED CARE OF PT AT APPROXIMATELY 1500. VS STABLE. BP IS LOW, BUT PER PT BP RUNS LOW. HR IS TACHYCARDIC 100-120. PT DENIES CHEST PAIN SINCE ADMISSION. PT RECEIVING DIALYSIS AT THIS TIME. PT COMPLAINS OF PAIN IN HER NECK AND BACK. BACK PAIN IS CHRONIC. NECK PAIN HAS BEEN PRESENT SINCE RECENT FALL. WILL CONTINUE TO MONITOR AND REPORT TO ONCOMING RN. CALL LIGHT IN REACH.
--- NOTE | 2019-04-15 19:15 | NUR ---
OPENING NOTE RECEIVED REPORT FROM HEIDY PATEL AND ASSUMED PT CARE. PT IS RESTING IN BED WITH EYES CLOSED, RESPIRATIONS EVEN, NO ACUTE DISTRESS AT THIS TIME. WILL CONTINUE PLAN OF CARE AND CONTINUE TO MONITOR.
--- NOTE | 2019-04-15 19:55 | NUR ---
EVENT NOTE UPON CHECKING VITAL SIGNS, BP IS NOTED TO BE 55/26. PT HAS CHRONIC HYPOTENSION AND TAKES MULTIPLE MEDICATIONS AT HOME TO MANAGE BLOOD PRESSURE. ADMINISTERED NORTHERA PER EMAR. PT IS ASYMPTOMATIC AT THIS TIME AND STATES "THIS IS NORMAL FOR ME". WILL CONTINUE TO MONITOR CLOSELY.
--- NOTE | 2019-04-15 21:05 | NUR ---
EVENT NOTE REPEAT BP AFTER HOME MEDICATION IS 63/41. PT STATES "I'M FEELING A LITTLE DIZZY RIGHT NOW". IN SPITE OF FEELING DIZZY, PT IS REQUESTING HOME MEDICATIONS TO INCLUDE AMBIEN, XANAX, AND GABAPENTIN. CALL PLACED TO DR. GUERRA R/T HYPOTENSION AFTER HOME MEDICATION (NORTHERA) ADMINISTERED. RECEIVED ORDERS FOR MIDODRINE TO SUPPORT BLOOD PRESSURE AND PARAMETERS TO GIVE ADDITIONAL REQUESTED HOME MEDICATIONS. EXPLAINED PLAN TO PT AND SHE STATES "THAT STUFF HAS NEVER BEEN A PROBLEM WITH MY BLOOD PRESSURE BEFORE BUT OK". REASSURED PT THAT THE BP WILL BE MONITORED CLOSELY AND ADDITIONAL MEDICATIONS FOR PAIN AND INSOMNIA WILL BE GIVEN ABLE.
--- NOTE | 2019-04-15 22:10 | NUR ---
EVENT NOTE RECHECKED BP AND IT IS CURRENTLY 61/34. PT DENIES DIZZINESS AT THIS TIME AND STATES "I FEEL JUST FINE NOW". WILL CONTINUE TO MONITOR CLOSELY.
--- NOTE | 2019-04-16 00:45 | NUR ---
EVENT NOTE BP NOTED AT 2311 TO BE 59/36. CALL PLACED TO DR. DIAZ AND MESSAGE LEFT. RECEIVED RETURN CALL FROM DR. DIAZ WITH INSTRUCTIONS TO CALL DR. URIBE AND RECEIVE FURTHER ORDERS FROM HIM. AFTER MULTIPLE ATTEMPTS TO CONTACT DR. URIBE AND SEVERAL MESSAGES LEFT, RECEIVED ORDERS FOR MEDICATION AND IVF AND ADMINISTERED AT 0045. PT REMAINS ASYMPTOMATIC. WILL CONTINUE TO MONITOR CLOSELY.
--- NOTE | 2019-04-16 02:20 | NUR ---
EVENT NOTE BP: . CALL PLACED TO DR. URIBE'S CELL AND AWAITING RETURN CALL. PT REMAINS ASYMPTOMATIC.
--- NOTE | 2019-04-16 02:45 | NUR ---
EVENT NOTE RECEIVED RETURN CALL FROM DR. URIBE AND RECEIVED AN ORDER TO GIVE ADDITIONAL HOME MEDICATION (NORTHERA) AT THIS TIME. PT CONTINUES TO REMAIN ASYMPTOMATIC AT THIS TIME AND MD DOES NOT HAVE ADDITIONAL ORDERS UNLESS PT BECOMES SYMPTOMATIC. WILL CONTINUE TO MONITOR CLOSELY.
[2019-04-16 03:42] LABS: BASOPHILS ABSOLUTE AUTO 0.05 K/mm3 (0.00-0.23); BASOPHILS PERCENT AUTO 1 % (0-2); EOSINOPHILS ABSOLUTE AUTO 0.01 K/mm3 (0.00-0.68); EOSINOPHILS PERCENT AUTO 0 % (0-6); Hematocrit 35.4 % (33.0-51.0); Hemoglobin 11.1 g/dL (11.5-16.0); IMMATURE GRAN ABSOLUTE AUTO 0.05 K/mm3 (0.00-0.10); IMMATURE GRAN PERCENT AUTO 1 % (0-1); LYMPHOCYTES ABSOLUTE AUTO 0.96 K/mm3 (0.84-5.20); LYMPHOCYTES PERCENT AUTO 10 % (21-46); MONOCYTES ABSOLUTE AUTO 0.66 K/mm3 (0.16-1.47); MONOCYTES PERCENT AUTO 7 % (4-13); Mean Corpuscular HGB 33.6 pg (26.0-34.0); Mean Corpuscular HGB Conc 31.4 g/dL (31.5-36.5); Mean Corpuscular Volume 107 fL (80-100); Mean Platelet Volume 10.7 fL (9.1-12.4); NEUTROPHILS ABSOLUTE AUTO 8.13 K/mm3 (1.96-9.15); NEUTROPHILS PERCENT AUTO 83 % (41-73); Platelet Count 156 K/mm3 (150-400); RDW Coefficient Variation 19.2 % (11.7-14.2); RDW Standard Deviation 76.1 fL (35.1-46.3); White Blood Cell Count 9.86 K/mm3 (4.00-11.30)
[2019-04-16 04:01] LABS: Albumin, Blood 3.9 g/dL (3.4-5.0); Anion Gap 14 mmol/L (6-16); Blood Urea Nitrogen 40 mg/dL (8-24); Bun/Creatinine Ratio 5.3 (12.0-20.0); CO2, Blood 25 mmol/L (21-32); Calcium, Blood 8.6 mg/dL (8.5-10.1); Chloride, Blood 92 mmol/L (98-108); Creatinine, Blood 7.57 mg/dL (0.40-1.00); Glomerular Filtration Rate 7 (60-); Glucose, Blood 133 mg/dL (70-99); Magnesium, Blood 2.4 mg/dL (1.6-2.4); Phosphorus, Blood 7.5 mg/dL (2.5-4.9); Potassium, Blood 4.7 mmol/L (3.5-5.5); Sodium, Blood 131 mmol/L (136-145)
--- NOTE | 2019-04-16 04:28 | NUR ---
EVENT NOTE PT IS REQUESTING FENTANYL PRN PER EXISTING ORDER FOR PAIN RATED 8/10 TO NECK AND BACK. CALLED DR. DIAZ TO NOTIFY OF IMPROVED BP OF 76/42 AND TO REQUEST PARAMETER WHEN OK TO GIVE FENTANYL. DR. DIAZ STATED "IT'S OK TO GIVE THE DOSE SHE HAS NOW". ADMINISTERED PER EMAR, PT DENIES OTHER COMPLAINTS AT THIS TIME.
--- NOTE | 2019-04-16 07:10 | NUR ---
PT HAS BEEN AWAKE AND COMPLAINING OF PAIN TO BACK AND NECK RATED 8/10 OFF AND ON THROUGH THE NIGHT. SEE PREVIOUS EVENT NOTES FOR HYPOTENSIVE EVENTS, SOMETIMES SYMPTOMATIC WITH DIZZINESS AT REST. NUMEROUS PHONE CALLS TO PHYSICIANS AND NEW ORDERS RECEIVED WITH SLIGHT IMPROVEMENT TO BP AND RESOLUTION OF DIZZINESS. PT HAS BEEN MEDICATED FOR PAIN PER EMAR SINCE IMPROVEMENT TO BP. PT HAS HAD IMPROVEMENT IN HEART RATE AND IS NO LONGER FEBRILE THIS MORNING, TELE SHOWS SR IN 80'S TO 90'S WHILE AT REST. PLAN IS FOR AN ECHO TODAY TO EVALUATE FOR PERICARDIAL EFFUSION. PT DENIES SHORTNESS OF BREATH AND HAS BEEN MAINTAINING SATS >92 ON RA. DENIES CHEST PAIN THROUGH SHIFT. SEE ASSESSMENT FOR DETAILS. WILL PROVIDE BEDSIDE REPORT TO DAY SHIFT RN FOR CONTINUED PLAN OF CARE.
--- NOTE | 2019-04-16 08:15 | NUR ---
AM NOTE. ASSUMED CARE OF PT APROX 0700. PT WAS ADMITTED FOR SYNCOPAL EPISODES AT HOME. PT C/O OF CHEST PAIN AND 9/10 NECK/BACK PAIN. PT WAS FEBRILE AT THIS TIME WITH TMAX OF 100.2. PT ALSO STATED THAT HER LEFT FOOT WAS NUMB AND SHE WAS UNABLE TO WALK ON IT. PT'S BP HAS BEEN HYPOTENSIVE HOWEVER PT DENIES BEING SYMPTOMATIC AT THIS TIME. PT HAS BEEN MEDICATED PER EMAR. WILL CONTINUE TO MONITOR.
--- NOTE | 2019-04-16 16:00 | NUR ---
echocardiogram complete
--- NOTE | 2019-04-16 17:52 | NUR ---
SHIFT SUMMARY. NO ACUTE CHANGES NOTED THIS SHIFT. PT IS CURRENTLY AFEBRILE AT 98.7. PT IS STILL HYPOTENSIVE BUT NOT SYMPTOMATIC. PT HAS C/O OF 9/10 PAIN T/O THIS SHIFT BUT APPEARES TO BE VERY RELAXED AND IN NO DISTRESS. PT HAS BEEN MEDICATED PER EMAR. PT'S C/O OF LEFT FOOT NUMBNESS HAS STOPPED AND PT IS ABLE TO AMBULATE W/O DIFFICULTY. IV ACCESS WAS LOST, A POWERGLIDE WAS ATTEMPTED BUT NOT SUCCESSFUL AT THIS TIME. CURRENTLY PT HAS NO IV ACCESS, STOREHOUSE CLERK AWARE, OTHER ATTEMPTS ARE BEING MADE TO OBTAIN ACCESS. CALL LIGHT IN REACH, BED IS LOCKED AND LOW WILL CONTINUE TO MONITOR UNTIL REPORT IS GIVEN TO ONCOMING RN.
[2019-04-17 04:51] LABS: Hematocrit 29.3 % (33.0-51.0); Hemoglobin 9.3 g/dL (11.5-16.0)
[2019-04-17 05:13] LABS: Magnesium, Blood 2.2 mg/dL (1.6-2.4)
[2019-04-17 05:15] LABS: Albumin, Blood 3.3 g/dL (3.4-5.0); Anion Gap 14 mmol/L (6-16); Blood Urea Nitrogen 61 mg/dL (8-24); Bun/Creatinine Ratio 6.3 (12.0-20.0); CO2, Blood 23 mmol/L (21-32); Calcium, Blood 7.3 mg/dL (8.5-10.1); Chloride, Blood 92 mmol/L (98-108); Creatinine, Blood 9.69 mg/dL (0.40-1.00); Glomerular Filtration Rate 5 (60-); Glucose, Blood 115 mg/dL (70-99); Phosphorus, Blood 7.4 mg/dL (2.5-4.9); Potassium, Blood 4.4 mmol/L (3.5-5.5); Sodium, Blood 129 mmol/L (136-145)
--- NOTE | 2019-04-17 07:34 | NUR ---
ASSUMED CARE: PT RESTING QUIETLY AT THIS TIME. NO ACUTE DISTRESS NOTED
--- NOTE | 2019-04-17 07:37 | NUR ---
END OF SHIFT SUMMARY NO ACUTE CHANGES THIS SHIFT. PT STATES BASELINE BP IS 70'S / 40'S. BP HAS REMAINED AROUND THESE LEVELS, AND HAS BEEN UPWARDS OF 80 SYSTOLICALLY. HAS TOLERATED IV DILAUDID WELL. DENYING CP T/O SHIFT. POWERGLIDE PLACED IN [place] BY CHARGE NURSE OF ICU. PT HAS REQUIRED IV DIALUADID FOR PAIN. HAD ONE INSRTANCE OF FEVER, TYLENOL GIVEN AND IMMEDIATELY WAS AFEBRILE. PT BELIEVES SHE WILL HAVE DIALYSIS TODAY. ORDERS RECEIVED PER JOJO, 1 UPRBC W/ DIALYSIS. ONCOMING NURSE NOTIFIED OF THIS, SLIP PLACED IN FRONT OF CHART. REPORT GIVEN TO ONCOMING NURSE.
--- NOTE | 2019-04-17 17:25 | NUR ---
SHIFT SUMMARY: PT'S BP HAS IMPROVED THIS SHIFT. AMBULATED ONCE WITH FRIEND IN [place] WITHOUT COMPLAINT OF DIZZINESS OR CHEST PAIN. SHE DISCUSSED HER DAY WITH DR URIBE WHO REQUESTED DIALYSIS . BOARD CERTIFIED BEHAVIORAL ANALYST AWARE. PLANS TO COME SEE PT ONCE SHE IS AVAILABLE. MEDICATED FOR PAIN A FEW TIMES THIS SHIFT. NO FURTHER NEEDS OR CONCERNS NOTED
[2019-04-18 04:26] LABS: Hematocrit 27.8 % (33.0-51.0); Hemoglobin 9.1 g/dL (11.5-16.0)
--- NOTE | 2019-04-18 04:42 | NUR ---
END OF SHIFT SUMMARY NO ACUTE CHANGES THIS SHIFT. BP HAS REMAINED 70'S SYSTOLICALLY, WHICH IS BASELINE FOR THE PATIENT. PT STATES THAT SHE WILL BE GETTING DIALYSIS TODAY. BLOOD CULTURES RESULTS: GRAM+ COCCI IN [place], PROVIDER AWARE AND PT ALREADY HAS ZYVOX ORDERED. OTHERWISE, PT HAS REQURED SOME PAIN MEDICATION BUT HAS HAD LITTLE CONCERN THAT SHE HAS VOICED THO THIS NURSE. CALL LIGHT WITHIN REACH. WILL CONTINUE TO MONITOR UNTIL SHIFT CHANGE.
[2019-04-18 04:50] LABS: Magnesium, Blood 2.3 mg/dL (1.6-2.4)
[2019-04-18 05:16] LABS: Albumin, Blood 3.2 g/dL (3.4-5.0); Anion Gap 17 mmol/L (6-16); Blood Urea Nitrogen 68 mg/dL (8-24); CO2, Blood 23 mmol/L (21-32); Calcium, Blood 7.2 mg/dL (8.5-10.1); Chloride, Blood 87 mmol/L (98-108); Glomerular Filtration Rate 4 (60-); Glucose, Blood 112 mg/dL (70-99); Phosphorus, Blood 7.1 mg/dL (2.5-4.9); Potassium, Blood 4.9 mmol/L (3.5-5.5); Sodium, Blood 127 mmol/L (136-145)
--- NOTE | 2019-04-18 14:52 | NUR ---
Patient is lying in bed and binge watching T.V. shows. Patient shares her frustrations about her cathiter, infections and finding out what the plan of care is. Patient also speaks of her personal life: financial pressure, the problems with her living arrangements and her struggle to get and hold a decent job when she has reoccurring medical issues and hospital stays. We also discuss the emotional and mental drain she feels. I listen empathically, provide pastoral high school guidance counselor, companionship and prayer. Patient responds well and shows signs of an elevated mood.
--- NOTE | 2019-04-18 18:40 | NUR ---
SHIFT SUMMARY PT ALERT AND ORIENTED. VS STABLE. BP LOW, BUT PT RUNS LOW AT BASELINE. DR. ISRAEL CONSULTED AND STATES HE WILL ASSESS PT IN THE MORNING. DR. AQUINO IN THIS AFTERNOON WITH NEW ORDERS. DR. LOMBARDO CALLED AND UPDATED. PT AWARE OF PLAN. PT TO BE NPO AD MIDNIGHT. PT INDEPENDENT IN ROOM. WILL CONTINUE TO MONITOR AND REPORT TO ONCOMING RN. CALL LIGHT IN REACH.
--- NOTE | 2019-04-18 19:40 | NUR ---
CARE ASSUMPTION PT A&O X4. INDEPENDENT IN ROOM. VSS. WILL CONTINUE TO MONITOR AND PROVIDE CARE.
[2019-04-19 04:31] LABS: Hemoglobin 8.8 g/dL (11.5-16.0)
[2019-04-19 04:57] LABS: Magnesium, Blood 2.4 mg/dL (1.6-2.4)
[2019-04-19 05:04] LABS: Albumin, Blood 3.3 g/dL (3.4-5.0); Anion Gap 11 mmol/L (6-16); Blood Urea Nitrogen 46 mg/dL (8-24); CO2, Blood 25 mmol/L (21-32); Calcium, Blood 7.2 mg/dL (8.5-10.1); Chloride, Blood 96 mmol/L (98-108); Glomerular Filtration Rate 5 (60-); Glucose, Blood 124 mg/dL (70-99); Phosphorus, Blood 5.7 mg/dL (2.5-4.9); Potassium, Blood 3.7 mmol/L (3.5-5.5); Sodium, Blood 132 mmol/L (136-145)
[2019-04-19 05:05] LABS: Creatinine, Blood 9.24 mg/dL (0.40-1.00)
--- NOTE | 2019-04-19 05:48 | NUR ---
SHIFT SUMMARY PT A&O X4, INDEPENDENT IN ROOM. BP LOW, MEDICATING PER EMAR, OTHERWISE VSS. PT NPO SINCE MIDNIGHT, AWAITING MD ISRAEL CONSULT. MONITOR SHOWS NSR, HR 60-100. LUNG SOUNDS CLEAR, SPO2 > 92% ON RA. NO EVENTS OVERNIGHT. WILL CONTINUE TO MONITOR AND PROVIDE CARE UNTIL REPORT OFF TO DAY SHIFT RN.
--- NOTE | 2019-04-19 14:58 | NUR ---
Patient is sitting up in bed in the dark. Patient tells me that she is in a funk today. Patient says that she has had her surgery delayed more times than she can remember and has had very little communication as to why. Patient states that at the time she is 2 1/2 hrs past the last delay and has no idea when she might get to go in. Patient tells me that the infection grows as long as the infected cathiter is in and that she is the only financial supporter for her life and the longer she is in the hospital the more work she misses and the farther she gets behind on her bills. She already is late on her rent and has almost had her car repossessed. I normalize patient's experience, discuss possible reasons for the delay and lack of communication, we look at the positives of being where she is and the love and support that surrounds her.
--- NOTE | 2019-04-19 17:02 | NUR ---
SHIFT SUMMARY PT A&OX4, VSS, TELE SR @ 75, INDEPENDENT IN ROOM. NPO UNTIL MID-AFTERNOON WHEN [facility] CONSULT /MEDIPORT PROC CANCELLED FOR TODAY; PT TO BE NPO AT MIDNIGHT FOR MEDIPORT PROCEDURE TOMORROW - NO TIME IS SCHEDULED. PAIN MANAGED WITH 0.25 DILAUDID GIVEN X1 AND FLEXERIL GIVEN X2. DIALYSIS TODAY; AND DIALYSIS TOMORROW. FAMILY AT BEDSIDE. WCTM & TX PER EMAR UNTIL REPORT GIVEN TO ONCOMING NOC RN.
--- NOTE | 2019-04-19 21:29 | NUR ---
ASSUMED CARE ASSUMED CARE OF PT APPROX. 1900. PT A&OX4. ASSESSMENT COMPLETED. VITAL SIGNS STABLE. BLOOD PRESSURE SLIGHTLY LOW BUT IMPROVED FROM PREVIOUS BLOOD PRESSURES AND CONSISTENT WITH PT AVERAGE BLOOD PRESSURES. EVENING MEDICATIONS INCLUDED MEDICATIONS TO HELP WITH THIS. PT REPORTS FEELING GOOD, JUST SLEEPY THIS EVENING. PT ABLE TO AMBUALTE AROUND UNIT AND TOLERATED WELL. PT BACK TO BED AT THIS TIME. BED IN LOW POSITION, CALL LIGHT IN REACH AND PT DENIES ANY NEEDS AT THIS TIME.
[2019-04-20 04:20] LABS: Hematocrit 34.3 % (33.0-51.0); Hemoglobin 10.7 g/dL (11.5-16.0)
[2019-04-20 04:47] LABS: Magnesium, Blood 2.4 mg/dL (1.6-2.4)
[2019-04-20 04:48] LABS: Albumin, Blood 3.8 g/dL (3.4-5.0); Anion Gap 12 mmol/L (6-16); Blood Urea Nitrogen 44 mg/dL (8-24); Bun/Creatinine Ratio 4.6 (12.0-20.0); CO2, Blood 27 mmol/L (21-32); Calcium, Blood 7.9 mg/dL (8.5-10.1); Chloride, Blood 96 mmol/L (98-108); Glomerular Filtration Rate 5 (60-); Glucose, Blood 123 mg/dL (70-99); Phosphorus, Blood 5.5 mg/dL (2.5-4.9); Potassium, Blood 3.8 mmol/L (3.5-5.5); Sodium, Blood 135 mmol/L (136-145)
--- NOTE | 2019-04-20 05:41 | NUR ---
SHIFT SUMMARY PT PLEASANT, COOPERATIVE AND USES CALL LIGHT APPROPRIATELY. PT REMAINS A&OX4. VITAL SIGNS REMAIN STABLE. ASSESSMENT FINDINGS REMAIN UNCHANGED. PT ABLE TO WALK AROUND ROOM AND UNIT AND TOLERATED WELL. PT HAD INCREASED PAIN IN BACK INTERMITENTLY. PRN PAIN MEDICAITON GIVEN FOR THIS. PT HAS BEEN NPO SINCE MIDNIGHT FOR PROCEDURE TODAY. PT CURRENTLY IN BED RESTING. BED IN LOW POSITION, CALL LIGHT IN REACH AND PT DENIES ANY NEEDS AT THIS TIME. WILL CONTINUE TO MONITOR UNTIL HANDOFF TO DAY SHIFT RN.
--- NOTE | 2019-04-20 07:57 | NUR ---
NURSING PCU DAYSHIFT: Assumed care of pt at approx 0700. A/O, pleasant, cooperative w/care. C/O 5/10 chronic/constant back/neck pain, treating w/meds as ordered along w/rest and repositioning. Skin is fairly intact w/scattered bruising to UE's. Tele in place, NSR, no c/o CP/pressure, SBP 80's prior to a.m. meds, no noted edema. Respiratory status stable, denies dyspnea, O2 sat 99-100% on RA, no noted cough. Abd SNT, BT+, voids minimal urine d/t hx of CKD. PG present in RUE, s/l, fistula in JAYANT which is not patent, HD port to LCW w/dressing intact. Pt denies any current needs, plan for HD port replacement this a.m. followed by HD this afternoon. Call light in reach, pt is able to use w/o difficulty. No s/s of acute distress, awaiting HC to bedside, cont to monitor for any changes.
--- NOTE | 2019-04-20 16:21 | NUR ---
Patient is crying and upset when I encounter patient, RN Marilin comes in and hugs patient and encourages her before leaving. Patient shares with me multiple hurts and frustrations. I listen with non-judgement and encouragement. I also provide emotional support and prayer. Patient responds well and shows signs of an elevated mood.
--- NOTE | 2019-04-20 17:52 | NUR ---
NURSING PCU DAYSHIFT SUMMARY: Pt tearful intermittently t/o the shift regarding delay in port placement as well as insufficient communication in recent days. Discussed plan of care early in morning and worked to keep pt updated on schedule and notified of any changes. Xfer to HC early afternoon for port removal and new port placement to LCW. Pt tolerated well and returned from HC at approx 1430. Spiritual care at bedside earlier in shift, fire code inspector currently at bedside for HD. Pt appears in better spirits at this time and denies any current questions/needs. Call light in reach and pt is able to use w/o difficulty. Cont to monitor until rpt is provided to NOC RN.
[2019-04-21 05:18] LABS: Hematocrit 34.4 % (33.0-51.0); Hemoglobin 10.8 g/dL (11.5-16.0)
[2019-04-21 05:38] LABS: Albumin, Blood 3.7 g/dL (3.4-5.0); Anion Gap 10 mmol/L (6-16); Blood Urea Nitrogen 28 mg/dL (8-24); Bun/Creatinine Ratio 4.4 (12.0-20.0); CO2, Blood 29 mmol/L (21-32); Calcium, Blood 8.3 mg/dL (8.5-10.1); Chloride, Blood 93 mmol/L (98-108); Glomerular Filtration Rate 8 (60-); Glucose, Blood 206 mg/dL (70-99); Magnesium, Blood 2.3 mg/dL (1.6-2.4); Phosphorus, Blood 4.3 mg/dL (2.5-4.9); Potassium, Blood 3.9 mmol/L (3.5-5.5); Sodium, Blood 132 mmol/L (136-145)
--- NOTE | 2019-04-21 06:56 | NUR ---
SHIFT SUMMARY DYLAISIS WAS COMPLETED LAST NIGHT. PATIENT PLEASENT AND COOPERATIVE THROUGHOUT THE SHIFT. PATIENT APPEARED TO SLEEP WELL THROUGHOUT THE SECOND HALF OF THE NIGHT LAST NIGHT. PATIENT INDEPENDENT IN ROOM. PATIENT MEDICATED FOR PAIN PER EMAR. VITAL SIGNS CHARTED. WILL CONTINUE TO MONITOR PATIENT AND REPORT TO ONCOMING RN.
--- NOTE | 2019-04-21 10:15 | NUR ---
DIALYSIS FROM THE BEGINNING, THE VENOUS PRESSURE AND TMP RAN VERY HIGH. SYSTEM CLOTTED OFF WHILE TRYING TO FIX IT. I BELIEVE IT WAS THE TRANSDUCER. RESTARTED AND DOING WELL.
--- NOTE | 2019-04-21 12:06 | NUR ---
NURSING PCU TRANSFER SUMMARY: Assumed care of pt at approx 0700. Respiratory and cardiac status stable. Cont to c/o chronic pain, treating w/meds as ordered. Pt independent in room w/o difficulty. Denies dizziness/light headedness. 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 No significant changes noted t/o the a.m. HD RN at bedside at this time. Pt seen by PMD, changed to medical status w/o tele. Denies any current needs or questions regarding plan of care. Call light in reach, cont to monitor until transfer is completed.
--- NOTE | 2019-04-21 13:50 | NUR ---
PT ARRIVED TO ROOM 361 VIA W/C FROM PCU 11. ORIENTED TO ROOM AND CALL SYSTEM. DENIES PAIN/DISCOMFORT AT THIS TIME. WILL CONTINUE TO MONITOR
--- NOTE | 2019-04-21 15:30 | NUR ---
Patient is in a much better emotional/spiritual place today. Patient is much more positive and upbeat but does admit to feeling hurt by the events of the last couple of days. Patient tells stories of family and friends that are warm and humorous. I listen, and provide companionship. Patient thanks me for the visit.
--- NOTE | 2019-04-21 16:58 | NUR ---
LOW BP PT WITH LOW BP, 68/44 LATEST. SHE IS NON-MYMPTOMATIC AND SAYS SHE IS FEELING WELL. DR SNEED INFORMED, NO NEW ORDERS. WILL CONTINUE TO MONITOR.
--- NOTE | 2019-04-21 18:08 | NUR ---
DIALYSIS YESTERDAY THE NEW PERMA CATH WORKED EXTREMELY WELL. TODAY THE ART LINE WOULD NOT ASPIRTATE. TRIED FLUSHING. DIDN'T HELP. STARTED TX WITH ART LINE CONNECTED TO VENOUS AND VENOUS CONNECTE TO ART. STARTED OUT GOOD. BUT VENOUS PRESSURE ALMOST IMMEDIATELY WENT UP HIGH. FLUSHED LINE AGAIN AND IT FELT GOOD. SAME THING HAPPENED, WHILE TRYING TO FIGURED IT OUT AND FIX IT, THE SYSTEM CLOTTED. NEW SET UP STARTED. NO PROBLEMS AT ALL WHEN PT CONNECTED TO THE NEW SETUP. I BELIEVE THE PROBLEM WAS THE ART TRANSDUCER.
--- NOTE | 2019-04-22 07:53 | NUR ---
SHIFT SUMMARY PATIENT IS ALERT AND ORIENTED. INDEPENDENT IN ROOM. USES CALL LIGHT APPROPRIATELY. NO COMPLAINTS OF CHEST PAIN THROUGHOUT THE NIGHT. ON ROOM AIR. POWER GLIDE DID NOT DRAW FOR BLOOD. NO NEW CHANGES THROUGHOUT THE NIGHT. BLOOD PRESSURE WAS LOW AT THE START OF SHIFT BUT DID COME UP SOME.
[2019-04-22 08:39] LABS: Hematocrit 33.8 % (33.0-51.0); Hemoglobin 10.6 g/dL (11.5-16.0)
--- NOTE | 2019-04-22 08:43 | NUR ---
DIALYSIS ASKED TO DRAW BLOOD FROM DIALYSIS PORT FOR LAB AND NUC MED. BECAUSE HER ART LINE RAN POORLY YESTERDAY. I PACKED BOTH PORTS WITH [employer] SO WE CAN GET A DECENT TREATMENT ON HER NEXT RUN. LABS DRAWN PER PROTOCAL.
[2019-04-22 08:54] LABS: Albumin, Blood 3.9 g/dL (3.4-5.0); Anion Gap 10 mmol/L (6-16); Blood Urea Nitrogen 32 mg/dL (8-24); Bun/Creatinine Ratio 4.5 (12.0-20.0); CO2, Blood 28 mmol/L (21-32); Calcium, Blood 9.1 mg/dL (8.5-10.1); Chloride, Blood 90 mmol/L (98-108); Creatinine, Blood 7.04 mg/dL (0.40-1.00); Glomerular Filtration Rate 7 (60-); Glucose, Blood 111 mg/dL (70-99); Magnesium, Blood 2.2 mg/dL (1.6-2.4); Sodium, Blood 128 mmol/L (136-145)
--- NOTE | 2019-04-22 15:03 | NUR ---
Patient is sitting on the bed and filling out paper work. Patient informs me that she is going in for a specific kind of scan to determine if she has an infection in her blood. Patient changes the topic to discuss family and friends and more humorous subjects. Patient gets herself laughing but then tells me about the change in schedule for her surgery in [place]. We talk about music and good memories and then the tech arrives to take patient to get her scan. Patient thanks me for the time and care. I will continue to remain available to patient.
[2019-04-23 05:18] LABS: Hematocrit 30.3 % (33.0-51.0); Hemoglobin 9.9 g/dL (11.5-16.0)
--- NOTE | 2019-04-23 05:46 | NUR ---
SHIFT SUMMARY: DIGNA HAD A GOOD NIGHT. SHE HAD PAIN MEDICATION X2, NO NAUSEA OR CHEST PAIN NOTED. ONLY PAIN WAS IN HER BACK. SHE STAYED UP RESTING IN ROOM TILL AROUND MIDNIGHT WHEN SHE GOT HER SECOND DOSE OF PAIN MEDS AND THEN SHE SLEPT REALLY WELL AFTER THAT. SHE HAD NO ACUTE CHANGES OR CONCERNS THIS SHIFT. WILL REPORT TO DAY SHIFT RN.
[2019-04-23 05:58] LABS: Albumin, Blood 3.3 g/dL (3.4-5.0); Anion Gap 15 mmol/L (6-16); Blood Urea Nitrogen 47 mg/dL (8-24); Bun/Creatinine Ratio 5.3 (12.0-20.0); CO2, Blood 22 mmol/L (21-32); Calcium, Blood 8.3 mg/dL (8.5-10.1); Chloride, Blood 90 mmol/L (98-108); Creatinine, Blood 8.86 mg/dL (0.40-1.00); Glomerular Filtration Rate 6 (60-); Glucose, Blood 108 mg/dL (70-99); Phosphorus, Blood 4.3 mg/dL (2.5-4.9); Potassium, Blood 3.6 mmol/L (3.5-5.5); Sodium, Blood 127 mmol/L (136-145)
--- NOTE | 2019-04-23 11:13 | NUR ---
DR SAVANA Martines NOTIFIED OF CONSULT.
--- NOTE | 2019-04-23 16:07 | NUR ---
PT BLOOD PRESSURE THIS AFTERNOON NOTED TO BE 67/40, PT REQUESTING PAIN MEDICATIONS AT THIS TIME. I SPOKE WITH PT MY CONCERNS OF GIVING PAIN MEDS WITH BP THAT LOW, PT REQUESTING FOR IT TO BE RECHECKED, STATES SHE IS TYPICALLY SYMPTOMATIC IN THE 60'S AND REPORTS SHE IS NOT. BP NOW 75/45 WITH RECHECK. PT REPORTS THIS IS HER BASELINE AND ESPECIALLY AFTER HD. PAIN MEDS GIVEN WELL MIDODRINE.
--- NOTE | 2019-04-23 16:39 | NUR ---
SHIFT SUMMARY- PT A/OX3, INDEP IN ROOM. PT MEDICATED X2 WITH DILAUDID FOR BACK PAIN. NO OTHER COMPLAINTS T/O THE DAY. HD THIS AM. PT HAS BEEN HYPOTENSION T/O THE DAY WHICH PT STATES THIS IS HER BASELINE AND IS ASYMPTOMATIC. LS CLEAR, ON RA. HRR. PT REPORTS BLOODY STOOLS, GI CONSULTED AND PLAN FOR COLONOSCOPY TOMORROW AM. PT STARTED BOWEL PREP THIS EVENING. PT ON CLEAR LIQUIDS AND NPO AT 0530. NO OTHER ACUTE CHANGES THIS SHIFT.
--- NOTE | 2019-04-24 05:33 | NUR ---
SHIFT SUMMARY PT SLEPT FAIR, MEDICATED X2 FOR PAIN DURING THE NIGHT. REFUSED OFFER OF FLEXERIL, WANTED IV DILAUDID. HAS BEEN TO BATHROOM INDEPENDENTLY, BUT IS FLUSHING TOILET PRIOR TO LETTING STAFF SEE RESULTS. STATES THERE ISN'T ANY BLOOD IN IT. WILL CONTINUE TO MONITOR.
[2019-04-24 05:36] LABS: Albumin, Blood 4.1 g/dL (3.4-5.0); Anion Gap 17 mmol/L (6-16); Blood Urea Nitrogen 38 mg/dL (8-24); Bun/Creatinine Ratio 4.7 (12.0-20.0); CO2, Blood 20 mmol/L (21-32); Calcium, Blood 8.9 mg/dL (8.5-10.1); Chloride, Blood 89 mmol/L (98-108); Creatinine, Blood 8.17 mg/dL (0.40-1.00); Glomerular Filtration Rate 6 (60-); Glucose, Blood 88 mg/dL (70-99); Phosphorus, Blood 5.3 mg/dL (2.5-4.9); Potassium, Blood 4.1 mmol/L (3.5-5.5); Sodium, Blood 126 mmol/L (136-145)
[2019-04-24 06:25] LABS: Hematocrit 32.6 % (33.0-51.0); Hemoglobin 9.7 g/dL (11.5-16.0)
--- NOTE | 2019-04-24 07:42 | NUR ---
PT NOTED TO HAVE LIQUID CARDOSO STOOL WITH FLEX BUT NOTHING SOLID, DAY SURGERY NOTIFIED THIS AM. TAP WATER ENEMA GIVEN. PT TO DAY SURGERY FOR COLONOSCOPY AT THIS TIME.
--- NOTE | 2019-04-24 07:47 | NUR ---
04/24/[address] HERE TO PROVIDE ANESTHESIA CARE FOR THE PATIENT, PLEASE SEE ANESTHESIA RECORD FOR DETAILS. History, Chart, Medications and Allergies reviewed before start of procedure. Patient confirms NPO status and agrees with scheduled surgery. Patient states colon prep results clear AFTER TAP WATER ENEMA MONITOR INTACT WITH CONTINUOUS PULSE OXIMETRY AND INTERMITTENT BP. O2 VIA N/C INTACT THROUGHOUT SEDATION/PROCEDURE.
--- NOTE | 2019-04-24 17:27 | NUR ---
SHIFT SUMMARY- PT A/OX4, INDEP IN ROOM. COLONOSCOPY COMPLETED THIS AM. HD THIS AFTERNOON. BP REMAINS LOW WHICH PT REPORTS THIS IS HER BASELINE AND IS ASYMPTOMATIC. SCHEDULED BP MEDS GIVEN. IV DILAUDID DC'D, FLEXERIL GIVEN X1 THIS SHIFT FOR LOWER BACK PAIN. POWERGLIDE DRESSING CHANGED. POSS D/C HOME TOMORROW AFTER DIALYSIS. NO OTHER ACUTE CHANGES THIS SHIFT.
--- NOTE | 2019-04-25 04:13 | NUR ---
SHIFT SUMMARY- NO ACUTE CHANGES OVERNIGHT. PT. AMBULATED IN THE HALLS AND DOWNSTAIRS AT BEGINNING OF SHIFT. SCHEDULED MEDS AND PRN'S GIVEN PER EMAR, TOLERATED WELL. PT. ASLEEP T/O THE REST OF THE NIGHT. NO APPARENT DISTRESS NOTED. HD TODAY WITH POSS D/C TO HOME AFTERWARDS. CALL LIGHT WITHIN REACH AND SIDE RAILS UP X2. WILL CONT TO MONITOR.
[2019-04-25 09:41] LABS: Hematocrit 29.9 % (33.0-51.0); Hemoglobin 9.7 g/dL (11.5-16.0)
[2019-04-25 10:17] LABS: Albumin, Blood 3.6 g/dL (3.4-5.0); Anion Gap 14 mmol/L (6-16); Blood Urea Nitrogen 40 mg/dL (8-24); Bun/Creatinine Ratio 4.7 (12.0-20.0); CO2, Blood 26 mmol/L (21-32); Calcium, Blood 9.1 mg/dL (8.5-10.1); Chloride, Blood 91 mmol/L (98-108); Creatinine, Blood 8.43 mg/dL (0.40-1.00); Glomerular Filtration Rate 6 (60-); Glucose, Blood 100 mg/dL (70-99); Phosphorus, Blood 5.3 mg/dL (2.5-4.9); Potassium, Blood 4.9 mmol/L (3.5-5.5); Sodium, Blood 131 mmol/L (136-145)
[2019-04-25 10:24] LABS: Magnesium, Blood 2.2 mg/dL (1.6-2.4)
[2019-04-25] MEDS ORDERED: CYCL10 PO (13:58)
[2019-04-25] MEDS ORDERED: DOXY100 PO (13:58)
--- NOTE | 2019-04-25 14:28 | NUR ---
1420 PT DISCHARGED HOME VIA PERSONAL VEHICLE. PT SELF AMBULATED TO ENTRANCE PER HER REQUEST. POWERGLIDE FLUSHED PRIOR TO D/C. D/C PAPERWORK REVIEWED WITH PT AND COPY PROVIDED. APPOINTMENT MADE WITH [facility] FOR TOMORROW AT 1500. PT REPORTED THAT SHE WILL MAKE APPOINTMENT TO FOLLOW UP WITH PCP, GI, AND ID. NO REDNESS TO L CHEST PERMCATH. BP LOW POST DIALYSIS, IMPROVED WITH MIDODRINE PRIOR TO D/C.
[2019-04-26 15:07] LABS: ATYPICAL PANCA <1:20 titer (Neg:<1:20); CYTOPLASMIC (C-ANCA) <1:20 titer (Neg:<1:20); PERINUCLEAR (P-ANCA) <1:20 titer (Neg:<1:20)
== END 2019-04-25 14:24 | disposition home or self-care (01) | DRG 919 ==
LOC: ER 09:32 → PCU 13:41 → MEDS 13:41 → PCU 14:52 → MEDS 04-21 13:09 → ENPENDDIS 04-25 11:32 → MEDS 04-25 14:24
PROVIDERS: Emergency Medicine; Internal Medicine Gastroenterology; Internal Medicine Nephrology; ADMIT Internal Medicine
PROC: 0DBM8ZX Excision of Descending Colon, Via Natural or Artificial Opening Endoscopic, Diagnostic (ICD-10-PCS; 2019-04-24)
PROC: 0DBK8ZX Excision of Ascending Colon, Via Natural or Artificial Opening Endoscopic, Diagnostic (ICD-10-PCS; principal; 2019-04-24 07:30)
DX: T85.71XA Infection and inflammatory reaction due to peritoneal dialysis catheter, initial encounter (principal); A41.02 Sepsis due to Methicillin resistant Staphylococcus aureus; N18.6 End stage renal disease; I12.0 Hypertensive chronic kidney disease with stage 5 chronic kidney disease or end stage renal disease; Z94.0 Kidney transplant status; K63.3 Ulcer of intestine; N25.81 Secondary hyperparathyroidism of renal origin; E87.1 Hypo-osmolality and hyponatremia; Z99.2 Dependence on renal dialysis; D63.1 Anemia in chronic kidney disease; Z86.711 Personal history of pulmonary embolism; Z91.81 History of falling; Z95.2 Presence of prosthetic heart valve; K21.9 Gastro-esophageal reflux disease without esophagitis; K58.9 Irritable bowel syndrome, unspecified; J44.9 Chronic obstructive pulmonary disease, unspecified
CPT/HCPCS: 36415; 36430; 36581; 70450; 71046; 72040; 72100; 78582; 78805; 80053; 80069; 83605; 83735; 84484; 84703; 85014; 85018; 85025; 85379; 86140; 86255; 86671; 86850; 86900; 86901; 86923; 87040; 87070; 87077; 87147; 87186; 88305; 93005; 93010; 93308; 93321; 96361; 96374; 96375; 99152; 99285-25; A9270; A9540; A9558; A9569; C1750; C1751; C1769; J0878; J0881; J1170; J1200; J1644; J1720; J1956; J2020; J2250; J2370; J2405; J2704; J2997; J3010; J7030; J7040; J7050; P9016; P9046; Q9967

== ENCOUNTER 2019-04-26 00:18 | Day surgery (SDC) | payer MEDICARE, OTHER | END 2019-04-26 22:44 | disposition home or self-care (01) | LOC: ATC 00:18 | DX: R78.81 Bacteremia (principal); N18.6 End stage renal disease; K21.9 Gastro-esophageal reflux disease without esophagitis; I95.9 Hypotension, unspecified; I82.602 Acute embolism and thrombosis of unspecified veins of left upper extremity; B95.62 Methicillin resistant Staphylococcus aureus infection as the cause of diseases classified elsewhere; Z99.2 Dependence on renal dialysis; Z86.711 Personal history of pulmonary embolism; Z88.1 Allergy status to other antibiotic agents; Z91.041 Radiographic dye allergy status; Z88.8 Allergy status to other drugs, medicaments and biological substances; Z79.899 Other long term (current) drug therapy | CPT/HCPCS: 96365; J0878 ==

== ENCOUNTER 2019-04-28 00:12 | Day surgery (SDC) | payer MEDICARE, OTHER | END 2019-04-28 15:26 | disposition home or self-care (01) | LOC: ATC 00:12 | DX: R78.81 Bacteremia (principal); B95.62 Methicillin resistant Staphylococcus aureus infection as the cause of diseases classified elsewhere; N18.6 End stage renal disease; Z99.2 Dependence on renal dialysis; Z88.1 Allergy status to other antibiotic agents; Z91.041 Radiographic dye allergy status; Z88.8 Allergy status to other drugs, medicaments and biological substances | CPT/HCPCS: 96365; J0878 ==

== ENCOUNTER 2019-04-30 14:49 | Day surgery (SDC) | payer MEDICARE, OTHER | END 2019-04-30 15:55 | disposition home or self-care (01) | LOC: ATC 14:49 | DX: R78.81 Bacteremia (principal); B95.62 Methicillin resistant Staphylococcus aureus infection as the cause of diseases classified elsewhere; I12.0 Hypertensive chronic kidney disease with stage 5 chronic kidney disease or end stage renal disease; N18.6 End stage renal disease; D63.1 Anemia in chronic kidney disease; Z99.2 Dependence on renal dialysis; Z86.711 Personal history of pulmonary embolism; Z91.018 Allergy to other foods; Z88.1 Allergy status to other antibiotic agents; Z88.8 Allergy status to other drugs, medicaments and biological substances; Z91.041 Radiographic dye allergy status; Z79.899 Other long term (current) drug therapy | CPT/HCPCS: 96365; J0878 ==

== ENCOUNTER → 2019-06-07 | Outpatient (CLI) | payer MEDICARE, OTHER | END | disposition home or self-care (01) | LOC: LAB SHORT 15:29 → LAB EV 15:29 | DX: J02.9 Acute pharyngitis, unspecified (principal) | CPT/HCPCS: 87077; 87081 ==

== ENCOUNTER → 2019-06-07 | Outpatient (CLI) | payer MEDICARE, OTHER | END | disposition home or self-care (01) | LOC: OLS 16:17 → LAB SHORT 16:17 | DX: R10.9 Unspecified abdominal pain (principal) | CPT/HCPCS: 36415; 84703 ==